=== PATIENT | male | born 1950 | race Caucasian/White ===

== ENCOUNTER 2024-03-06 15:46 | Emergency (ER) | payer MEDICARE ==
[2024-03-06 16:09] VITALS: TEMP 97.4; O2SAT 100
[2024-03-06] MEDS ORDERED: solu-MEDROL ONE (16:10)
[2024-03-06] MEDS ORDERED: Sterile H2O 10 ml IJ ONE (16:10)
[2024-03-06] MEDS: solu-MEDROL 125 MG, Sterile H2O 10 ml 2 ML IV ONE (16:11)
[2024-03-06] MEDS ORDERED: DUONEB 0.5-3 MG/3 ml Neb IH ONE (16:11)
[2024-03-06] MEDS: DUONEB 0.5-3 MG/3 ml Neb IH ONE (16:12)
[2024-03-06 16:14] LABS: Absolute Neutrophil Ct (ANC) 5.39 x10^3/uL (1.78-5.38); BASOPHIL % 0.8 % (0.2-1.2); Basophil (Absolute #) 0.06 x10^3/uL (0.01-0.08); Eosinophil % 3.5 % (0.8-7.0); Eosinophil (Absolute #) 0.27 x10^3/uL (0.04-0.54); Hematocrit 41.3 % (40.1-51.0); Hemoglobin 13.5 g/dL (13.7-17.5); IMMATURE GRAN # 0.02 x10^3u/L (0.001-0.031); IMMATURE GRAN % 0.3 % (0.001-0.429); Lymphocyte (Absolute #) 1.37 x10^3/uL (1.32-3.57); Lymphocytes % 17.7 % (21.8-53.1); Mean Cell Volume 91.2 fL (79.0-92.2); Mean Corpuscular Hemoglobin 29.8 pg (25.7-32.2); Mean Corpuscular Hgb Concent. 32.7 g/dL (32.3-36.5); Mean Platelet Volume 9.8 fL (9.4-12.4); Monocyte (Absolute #) 0.65 x10^3/uL (0.30-0.82); Monocytes % 8.4 % (5.3-12.2); Neutrophil % 69.3 % (34.0-67.9); Platelet Count 240 x10^3/uL (163-337); Red Blood Count 4.53 x10^6/uL (4.63-6.08); Red Cell Distribution Width 13.4 % (11.6-14.4); White Blood Count 7.8 x10^3/uL (4.23-9.07)
[2024-03-06 16:29] LABS: ALBUMIN 4.5 g/dL (3.5-5.0); ANION GAP 11.7 MEQ/L (5-15); BILIRUBIN,TOTAL 0.8 mg/dL (0.2-1.3); Calcium 9.4 mg/dL (8.4-10.2); Creatinine 1 0.74 mg/dL (0.66-1.25); EST GLOMERULAR FILTRATION RATE 96.3 ML/MIN; Potassium 4.5 mmol/L (3.5-5.1); Total Protein 8.1 g/dL (6.3-8.2)
--- NOTE | 2024-03-06 16:37 | ERPHSYRPT ---
- History of Present Illness Time Seen by Provider: 03/06/24 15:50 Source: patient, family Exam Limitations: no limitations Patient Subjective Stated Complaint: pt states SOB for the past week Triage Nursing Assessment: pt came into the er via wheelchair; pt is axo x3; c/o SOB; pt states 10/10 pain to left ribs; moist hacking cough; diminished lungs sounds throughout; labored breathing; skin PDW; hypertensive Physician History: 73 years old male with history of chronic respiratory failure secondary to COPD on 2.5 L oxygen, tobacco abuse, hypertension, hyperlipidemia, coronary artery disease with stenting presented in the ER with 2 week history of worsening cough productive of clear to yellow sputum with increasing shortness of breath. Patient reports normally he does not use oxygen all the time but lately he is getting short of breath with activities and has been using it more frequently. He has been using inhaler/nebulizer with no significant relief. Denies any fever or chills but reports bilateral lower chest wall/rib pain more on the left side than the right. Has been seen by chiropractor and thinks it is [place] which hurts to take a deep breath and movements and possible fractured rib. Denies any known sick contact. Allergies/Adverse Reactions: No Known Drug Allergies Allergy (Unverified 03/06/24 15:48) Home Medications: Aspirin EC 81 mg [Ecotrin 81 mg] 81 mg PO DAILY 03/06/24 [History] Atorvastatin Calcium 80 mg PO HS 03/06/24 [History] Carvedilol 3.125 mg [Coreg 3.125 MG] 3.125 mg PO BID 03/06/24 [History] Clopidogrel Bisulfate [Clopidogrel] 75 mg PO DAILY 03/06/24 [History] Losartan Potassium [Cozaar] 12.5 mg PO DAILY 03/06/24 [History] Nitroglycerin 0.4 mg Tablet [Nitrostat 0.4 MG Tablet] 0.4 mg SL Q5MIN PRN MR X 3 PRN 03/06/24 [History] Hx Tetanus, Diphtheria Vaccination/Date Given: Yes Hx Influenza Vaccination/Date Given: No Hx Pneumococcal Vaccination/Date Given: Yes Travel Risk - International Travel Have you traveled outside of the country in past 3 weeks: No - Emerging Infectious Disease Are you exhibiting symptoms associated with any current EIDs: Yes Symptoms: Cough: New Onset, Shortness of Breath - Review of Systems Constitutional: Fatigue Eyes: No Symptoms Ears, Nose, & Throat: No Symptoms Respiratory: Cough, Dyspnea, Dyspnea on Exertion (BELL), Wheezing Cardiac: Chest Pain Abdominal/Gastrointestinal: No Symptoms Genitourinary Symptoms: No Symptoms Musculoskeletal: Arthralgias Skin: No Symptoms Neurological: No Symptoms Endocrine: No Symptoms Hematologic/Lymphatic: No Symptoms Immunological/Allergic: No Symptoms - Past Medical History Pertinent Past Medical History: Yes Neurological History: No Pertinent History ENT History: No Pertinent History Cardiac History: High Cholesterol, Hypertension Respiratory History: COPD Endocrine Medical History: No Pertinent History Musculoskeletal History: No Pertinent History GI Medical History: No Pertinent History History: No Pertinent History Psycho-Social History: Anxiety, Depression Male Reproductive Disorders: No Pertinent History - Past Surgical History Past Surgical History: Yes Neuro Surgical History: No Pertinent History Cardiac: Cardiac Catheterization, Cardiac Stent Respiratory: No Pertinent History Gastrointestinal: Hernia Repair Genitourinary: No Pertinent History Musculoskeletal: No Pertinent History Male Surgical History: No Pertinent History - Social History Smoking Status: Former smoker Exposure to second hand smoke: Yes Drug Use: none - Social Determinants of Health Will the patient participate in the screening: Yes Do you worry about a steady place to live?: No Do you have any problems with any of the following?: No known problems In the past 12 months,have you had to go without utilities?: No Transportation Issues: No Has anyone in your support network made you feel unsafe?: No Have you or anyone in your house had to go without enough: No - Nursing Vital Signs Nursing Vital Signs: Initial Vital Signs Temperature 97.4 F 03/06/24 15:54 Pulse Rate 79 03/06/24 15:54 Respiratory Rate 30 H 03/06/24 15:54 Blood Pressure 217/104 03/06/24 15:54 O2 Sat by Pulse Oximetry 100 03/06/24 15:54 Pain Scale Pain Intensity 0 - Physical Exam General Appearance: no apparent distress, alert Eye Exam: PERRL/EOMI Ears, Nose, Throat Exam: hearing grossly normal, normal ENT inspection, normal pharynx Neck Exam: normal inspection, full range of motion Respiratory Exam: chest tenderness (Left lower anterolateral chest wall. No crepitus.), diminished breath sounds, accessory muscle use, rhonchi, wheezing Cardiovascular/Chest Exam: normal heart sounds, regular rate/rhythm Abdominal/Gastrointestinal Exam: soft, normal bowel sounds, No tenderness Extremity Exam: non-tender Neurologic Exam: alert, oriented x 3, cooperative Skin Exam: normal color SpO2 Interpretation: O2 applied SpO2: 100 O2 Delivery: Nasal Cannula - Course EKG Interpreted by Me: RATE (79), Sinus Rhythm, NORMAL AXIS, NORMAL INTERVALS, NORMAL QRS Ordered Tests: Active Orders 24 hr Category Date Time Status [place] [facility] STAT Care 03/06/24 16:07 Active EKG-ER Only STAT Care 03/06/24 16:07 Active IV Insertion STAT Care 03/06/24 16:07 Active Oxygen-ED Only Nasal Cannula 2 lpm Care 03/06/24 16:07 Active CHEST 1 VIEW (PORTABLE) Stat Exams 03/06/24 16:07 Completed CHEST WITH CONTRAST [CT] Stat Exams 03/06/24 17:59 Taken BLOOD CULTURE Stat Lab 03/06/24 16:23 Received CBC W DIFF Stat Lab 03/06/24 16:00 Completed CMP Stat Lab 03/06/24 16:00 Completed D-DIMER QUANTITATIVE Stat Lab 03/06/24 Completed Lactic Acid Stat Lab 03/06/24 16:07 Completed MAGNESIUM Stat Lab 03/06/24 16:00 Completed NT PRO BNPII Stat Lab 03/06/24 16:00 Completed TROPONIN Q4H Lab 03/06/24 16:00 Completed TROPONIN Q4H Lab 03/06/24 20:15 Ordered TROPONIN Q4H Lab 03/07/24 00:15 Ordered Respiratory Therapy Assessment DAILY RT 03/06/24 16:15 Active Medication Summary Discontinued Medications Generic Name Dose Route Start Last Admin Trade Name Danya PRN Reason Stop Dose Admin Albuterol/Ipratropium 3 ml 03/06/24 16:07 03/06/24 16:12 Ipratropium/Albuterol Sulfate 3 Ml Ampul.Neb IH 03/06/24 16:08 3 ml STAT ONE Administration Albuterol/Ipratropium Confirm 03/06/24 16:11 Ipratropium/Albuterol Sulfate 3 Ml Ampul.Neb Administered 03/06/24 16:12 Dose 3 ml IH .STK-MED ONE Methylprednisolone Sodium 0 mg 03/06/24 16:07 03/06/24 16:11 Succinate 125 mg/ Sterile IV 03/06/24 16:08 125 mg Water 2 ml STAT ONE Administration Doxycycline Hyclate 100 mg 03/06/24 20:21 03/06/24 20:26 Doxycycline Hyclate 100 Mg Tablet PO 03/06/24 20:22 100 mg STAT ONE Administration Doxycycline Hyclate Confirm 03/06/24 20:24 Doxycycline Hyclate 100 Mg Tablet Administered 03/06/24 20:25 Dose 100 mg .ROUTE .STK-MED ONE Methylprednisolone Sodium Succinate Confirm 03/06/24 16:10 Methylprednis Sod Succ 125 Mg/2 Ml Vial Administered 03/06/24 16:11 Dose 125 mg .ROUTE .STK-MED ONE Sterile Water Confirm 03/06/24 16:10 Water For Injection,Sterile 10 Ml Vial Administered 03/06/24 16:11 Dose 10 ml IJ .STK-MED ONE Lab/Rad Data: Laboratory Result Diagrams 03/06/24 16:00 03/06/24 16:00 Laboratory Results 03/06/24 03/06/24 03/06/24 Range/Units Unknown 16:20 16:07 WBC (4.23-9.07) x10^3/uL RBC (4.63-6.08) x10^6/uL Hgb (13.7-17.5) g/dL Hct (40.1-51.0) % MCV (79.0-92.2) fL MCH (25.7-32.2) pg MCHC (32.3-36.5) g/dL RDW (11.6-14.4) % Plt Count (163-337) x10^3/uL MPV (9.4-12.4) fL Gran % (34.0-67.9) % Immature Gran % (Auto) (0.001-0.429) % Nucleat RBC Rel Count (0.00-0.2) % Eos # (Auto) (0.04-0.54) x10^3/uL Immature Gran # (Auto) (0.001-0.031) x10^3u/L Absolute Lymphs (auto) (1.32-3.57) x10^3/uL Absolute Monos (auto) (0.30-0.82) x10^3/uL Absolute Nucleated RBC (0.00-0.012) x10^3u/L Lymphocytes % (21.8-53.1) % Monocytes % (5.3-12.2) % Eosinophils % (0.8-7.0) % Basophils % (0.2-1.2) % Absolute Granulocytes (1.78-5.38) x10^3/uL Basophils # (0.01-0.08) x10^3/uL D-Dimer 1.40 H* (0.0-0.50) mg/L Sodium (135-145) mmol/L Potassium (3.5-5.1) mmol/L Chloride (98-107) mmol/L Carbon Dioxide (22-30) mmol/L Anion Gap (5-15) MEQ/L BUN (9-20) mg/dL Creatinine (0.66-1.25) mg/dL Estimated GFR ML/MIN Glucose (74-106) mg/dL Lactic Acid 1.8 (0.4-2.0) Calcium (8.4-10.2) mg/dL Magnesium (1.6-2.3) mg/dL Total Bilirubin (0.2-1.3) mg/dL AST (17-59) U/L ALT (0-50) U/L Alkaline Phosphatase (38-126) U/L Troponin I (0.000-0.033) ng/mL NT-Pro-B Natriuret Pep (<300) pg/mL Serum Total Protein (6.3-8.2) g/dL Albumin (3.5-5.0) g/dL Influenza Type A Ag NEGATIVE (NEGATIVE) Influenza Type B Ag NEGATIVE (NEGATIVE) RSV (PCR) NEGATIVE (NEGATIVE) SARS-CoV-2 (PCR) NEGATIVE (NEGATIVE) 03/06/24 03/06/24 03/06/24 Range/Units 16:00 16:00 16:00 WBC 7.8 (4.23-9.07) x10^3/uL RBC 4.53 L (4.63-6.08) x10^6/uL Hgb 13.5 L (13.7-17.5) g/dL Hct 41.3 (40.1-51.0) % MCV 91.2 (79.0-92.2) fL MCH 29.8 (25.7-32.2) pg MCHC 32.7 (32.3-36.5) g/dL RDW 13.4 (11.6-14.4) % Plt Count 240 (163-337) x10^3/uL MPV 9.8 (9.4-12.4) fL Gran % 69.3 H (34.0-67.9) % Immature Gran % (Auto) 0.3 (0.001-0.429) % Nucleat RBC Rel Count 0.0 (0.00-0.2) % Eos # (Auto) 0.27 (0.04-0.54) x10^3/uL Immature Gran # (Auto) 0.02 (0.001-0.031) x10^3u/L Absolute Lymphs (auto) 1.37 (1.32-3.57) x10^3/uL Absolute Monos (auto) 0.65 (0.30-0.82) x10^3/uL Absolute Nucleated RBC 0.00 (0.00-0.012) x10^3u/L Lymphocytes % 17.7 L (21.8-53.1) % Monocytes % 8.4 (5.3-12.2) % Eosinophils % 3.5 (0.8-7.0) % Basophils % 0.8 (0.2-1.2) % Absolute Granulocytes 5.39 H (1.78-5.38) x10^3/uL Basophils # 0.06 (0.01-0.08) x10^3/uL D-Dimer (0.0-0.50) mg/L Sodium 139 (135-145) mmol/L Potassium 4.5 (3.5-5.1) mmol/L Chloride 100 (98-107) mmol/L Carbon Dioxide 31 H (22-30) mmol/L Anion Gap 11.7 (5-15) MEQ/L BUN 15 (9-20) mg/dL Creatinine 0.74 (0.66-1.25) mg/dL Estimated GFR 96.3 ML/MIN Glucose 106 (74-106) mg/dL Lactic Acid (0.4-2.0) Calcium 9.4 (8.4-10.2) mg/dL Magnesium 2.0 (1.6-2.3) mg/dL Total Bilirubin 0.80 (0.2-1.3) mg/dL AST 40 (17-59) U/L ALT 32 (0-50) U/L Alkaline Phosphatase 121 (38-126) U/L Troponin I < 0.012 (0.000-0.033) ng/mL NT-Pro-B Natriuret Pep 558 (<300) pg/mL Serum Total Protein 8.1 (6.3-8.2) g/dL Albumin 4.5 (3.5-5.0) g/dL Influenza Type A Ag (NEGATIVE) Influenza Type B Ag (NEGATIVE) RSV (PCR) (NEGATIVE) SARS-CoV-2 (PCR) (NEGATIVE) - Progress Progress: improved, re-examined Air Movement: fair, good Progress Note: 03/06/24 20:59 73 years old is evaluated in the ER for difficulty breathing and chest wall pain. Patient pain is reproducible and has 1 tender spot. EKG did not show any acute ST elevations and negative troponins x 2. Chest x-ray negative. Normal white count and fairly unremarkable chemistries. Patient has elevated D-dimer and CTA is negative for pulmonary embolism. Has no focal consolidation. Patient does have a right middle lung irregular mass concerning for further evaluation for malignancy. Patient does have history of smoking. I have given him DuoNeb and Solu-Medrol, on reevaluation is feeling much better. I have made him walk with oxygen with saturation staying around 98/99% and without oxygen the lowest 1 was in 95. Patient is not getting short of breath. I believe patient has COPD exacerbation. I discussed with patient about observation in the hospital versus going home and he does not want to stay in the hospital at all. I have given him a dose of doxycycline here and will continue to go home with Doxy and prednisone. Discussed/recommended outpatient follow-up with primary care and cardiology for further evaluation. Discussed signs symptoms of worsening needing return to ER which he seems understanding. Stable for discharge. Patient' history, workup, review of record and interpretation of workup including imaging and lab work makes it one of the higher complexity case. Blood Culture(s) Obtained: Yes Antibiotics given: Yes Counseled pt/family regarding: lab results, diagnosis, need for follow-up, rad results Medical Desision Making - Independent Historian Additional History obtained from: Child - Diagnostic Testing Diagnostic test were ordered, analyzed, and reviewed by me: Yes Radiological Interpretation: Reviewed by me, Teleradiologist Report - Risk of complications The pt has a mod risk of morbidity or mortality based on: Need for prescription drug management - Departure Departure Disposition: Home Clinical Impression: COPD exacerbation Condition: Stable Critical Care Time: No Referrals: LESTER CONTRERAS, [employer] [Primary Care Provider] - Follow up with PCP 1 day Instructions: Chronic Obstructive Pulmonary Disease, Exacerbation of COPD (DC) Additional Instructions: Continue with oxygen. Take regular breathing treatments. Follow-up with primary care and cardiology for reevaluation. Turn to ER for any worsening breathing or if having chest pain etc.. Prescriptions: Prednisone 20 mg [Deltasone 20 mg] 60 mg PO DAILY 5 Days #15 tablet Doxycycline Hyclate 100 mg [Vibramycin 100 MG] 100 mg PO BID #14 tab
[2024-03-06 17:07] LABS: INFLUENZA A NEGATIVE (NEGATIVE); INFLUENZA B NEGATIVE (NEGATIVE); RESPIRATORY SYNCTIAL VIRUS NEGATIVE (NEGATIVE); SARS-CoV-2 Xpert Express NEGATIVE (NEGATIVE)
--- NOTE | 2024-03-06 17:11 | XRAY ---
Indication: COPD. Comparison: November 15, 2022 Portable chest unchanged again demonstrating CT proven COPD and left lower lobe calcified granuloma. Heart not enlarged. Bony thorax intact again with osteopenia and degenerative changes. No new/acute findings.
[2024-03-06] MEDS ORDERED: Vibramycin 100 MG ONE (20:24)
[2024-03-06] MEDS: Vibramycin 100 MG PO ONE (20:26)
[2024-03-06 21:14] VITALS: BP 161/84; PULSE 73; RESP 21
--- NOTE | 2024-03-07 08:41 | XRAY ---
Indication: Short of breath. Pulmonary embolus. Multiple contiguous axial images obtained through the chest using 80 cc Isovue 370 contrast and PE protocol. Comparison: CT low-dose lung screening exam December 13, 2022. Good opacification of the pulmonary arteries to include the lobar and segmental branches. No pulmonary embolus. Heart not enlarged with scattered coronary calcifications. Aorta is mildly arteriosclerotic without aneurysm/dissection. Tiny left hilar calcified node. No pathologic mediastinal/hilar lymphadenopathy. Lungs again demonstrates extensive pulmonary emphysema, posterior bilateral upper lobe subsegmental atelectasis/scarring, and left lower lobe calcified granuloma. Right middle lobe demonstrates new irregular shaped masslike opacity measuring at least 2.7 x 2.7 x 2.5 cm either subsegmental atelectasis/scarring versus lung mass. No infiltrate or effusion. Bony thorax again demonstrates osteopenia. New remote-appearing superior endplate fracture T7 with approximately 25% height loss. Limited upper abdomen again demonstrates 3.8 cm left renal cyst. Impression: 1. Negative pulmonary embolus. 2. New right middle lobe irregular masslike opacity either atelectasis/scarring versus lung mass. PET/CT may yield further information. 2. Chronic findings including extensive pulmonary emphysema, atelectasis/scarring, arteriosclerotic disease, left renal cyst, and chronic bony findings.
== END 2024-03-06 21:20 | disposition home or self-care (01) ==
LOC: ED 15:46
DX: J44.1 Chronic obstructive pulmonary disease with (acute) exacerbation (principal); R05.1 Acute cough; R06.02 Shortness of breath; I10 Essential (primary) hypertension; E78.5 Hyperlipidemia, unspecified; Z79.52 Long term (current) use of systemic steroids; Z79.02 Long term (current) use of antithrombotics/antiplatelets; Z79.899 Other long term (current) drug therapy; Z99.81 Dependence on supplemental oxygen
CPT/HCPCS: 0241U; 36000; 36415; 71045; 71260; 80053; 83605; 83735; 83880; 84484; 85025; 85379; 87040; 93005; 93041; 94640; 96374; 99284; J2919; A9270-GY

== ENCOUNTER 2024-05-21 11:25 | Observation (INO) | payer MEDICARE ==
--- NOTE | 2024-05-21 11:28 | ERPHSYRPT ---
- History of Present Illness Time Seen by Provider: 05/21/24 11:28 Source: patient Exam Limitations: no limitations Physician History: This is a thin, 73-year-old white male patient of Dr. Mendez who sent the patient over to have us evaluate him. He was seen at the office and complaining of mild cough and shortness of breath. Patient is on 2.5 L of oxygen via nasal cannula. He presented to their office with complaint of a mild cough and shortness of breath. He does not have chest pain. Patient has a history of hypertension, hyperlipidemia and is on Plavix. I spoke to the nurse practitioner at the [facility] set [facility] worker office who told me that this patient has a hist ory of coronary artery disease with cardiac stent in place and mild aortic stenosis. She also reported to me that the patient had a CT scan of the chest on 04/22/2024 at [facility] which showed pulmonary edema. Patient's oxygen saturation level on 3 L of oxygen and here in the emergency department is 99 to 100%. Again, he has no chest pain. Timing/Duration: today, worse Activities at Onset: activity Severity of Dyspnea-Max: moderate Severity of Dyspnea-Current: moderate Possible Cause: frequent episodes Modifying Factors: Improves With: activity, coughing Associated Symptoms: cough, wheezing, No chest pain/discomfort, No ankle swelling, No leg swelling Allergies/Adverse Reactions: No Known Drug Allergies Allergy (Unverified 03/06/24 15:48) Home Medications: Aspirin EC 81 mg [Ecotrin 81 mg] 81 mg PO DAILY 03/06/24 [History] Atorvastatin Calcium 80 mg PO HS 03/06/24 [History] Carvedilol 3.125 mg [Coreg 3.125 MG] 3.125 mg PO BID 03/06/24 [History] Clopidogrel Bisulfate [Clopidogrel] 75 mg PO DAILY 03/06/24 [History] Losartan Potassium [Cozaar] 12.5 mg PO DAILY 03/06/24 [History] Nitroglycerin 0.4 mg Tablet [Nitrostat 0.4 MG Tablet] 0.4 mg SL Q5MIN PRN MR X 3 PRN 03/06/24 [History] Hx Tetanus, Diphtheria Vaccination/Date Given: Yes Hx Influenza Vaccination/Date Given: No Hx Pneumococcal Vaccination/Date Given: Yes Travel Risk - International Travel Have you traveled outside of the country in past 3 weeks: No - Emerging Infectious Disease Are you exhibiting symptoms associated with any current EIDs: Yes Symptoms: Cough: New Onset, Shortness of Breath - Review of Systems Constitutional: No Symptoms Eyes: No Symptoms Ears, Nose, & Throat: No Symptoms Respiratory: Cough, Dyspnea, Wheezing Cardiac: No Symptoms Abdominal/Gastrointestinal: No Symptoms Genitourinary Symptoms: No Symptoms Musculoskeletal: No Symptoms Skin: No Symptoms Neurological: No Symptoms Psychological: No Symptoms Endocrine: No Symptoms Hematologic/Lymphatic: No Symptoms Immunological/Allergic: No Symptoms All Other Systems: Reviewed and Negative - Past Medical History Pertinent Past Medical History: Yes Neurological History: No Pertinent History ENT History: No Pertinent History Cardiac History: High Cholesterol, Hypertension Respiratory History: COPD Endocrine Medical History: No Pertinent History Musculoskeletal History: No Pertinent History GI Medical History: No Pertinent History History: No Pertinent History Psycho-Social History: Anxiety, Depression Male Reproductive Disorders: No Pertinent History - Past Surgical History Past Surgical History: Yes Neuro Surgical History: No Pertinent History Cardiac: Cardiac Catheterization, Cardiac Stent Respiratory: No Pertinent History Gastrointestinal: Hernia Repair Genitourinary: No Pertinent History Musculoskeletal: No Pertinent History Male Surgical History: No Pertinent History - Social History Smoking Status: Former smoker Exposure to second hand smoke: Yes Drug Use: none - Social Determinants of Health Will the patient participate in the screening: Yes Do you worry about a steady place to live?: No In the past 12 months,have you had to go without utilities?: No Transportation Issues: No Has anyone in your support network made you feel unsafe?: No Have you or anyone in your house had to go without enough: No - Nursing Vital Signs Nursing Vital Signs: Initial Vital Signs Temperature 98.8 F 05/21/24 11:39 Pulse Rate 78 05/21/24 11:39 Respiratory Rate 20 05/21/24 11:39 Blood Pressure 163/92 05/21/24 11:39 O2 Sat by Pulse Oximetry 100 05/21/24 11:39 Pain Scale Pain Intensity 0 - Physical Exam General Appearance: mild distress, alert, anxiety, thin Eye Exam: PERRL/EOMI, eyes nml inspection Ears, Nose, Throat Exam: hearing grossly normal, normal ENT inspection, normal pharynx Neck Exam: normal inspection, non-tender, supple, full range of motion Respiratory Exam: airway intact, wheezing (Mild expiratory wheeze at bases), No chest tenderness, No respiratory distress, No accessory muscle use, No stridor Cardiovascular/Chest Exam: normal heart sounds, regular rate/rhythm, normal peripheral pulses Abdominal/Gastrointestinal Exam: soft, normal bowel sounds, No tenderness Rectal Exam: not done Extremity Exam: non-tender, normal range of motion, normal inspection, no pedal edema, pelvis stable Neurologic Exam: alert, oriented x 3, cooperative, clinical pharmacologist II-XII nml as tested, normal mood/affect, nml cerebellar function, nml station & gait, sensation nml Skin Exam: normal color, warm, dry Lymphatic Exam: No adenopathy SpO2 Interpretation: normal O2 Delivery: Nasal Cannula (3 L of oxygen) - Course Nursing assessment & vital signs reviewed: Yes EKG Interpreted by Me: RATE (74), NORMAL AXIS, NORMAL INTERVALS, NORMAL QRS, Other (QTc is 443. I do not see an acute ischemia. I compared today's twelve- lead EKG to the EKG dated 03/06/2024. There are no significant changes) Ordered Tests: Active Orders 24 hr Category Date Time Status EKG-ER Only STAT Care 05/21/24 11:59 Active IV Insertion STAT Care 05/21/24 11:59 Active Oxygen-ED Only Nasal Cannula 3 lpm Care 05/21/24 11:59 Active Pulse Oximetry (ED) STAT Care 05/21/24 11:59 Active CHEST WITHOUT CONTRAST [CT] Stat Exams 05/21/24 11:59 Completed BLOOD CULTURE Stat Lab 05/21/24 12:28 Received CBC W DIFF Stat Lab 05/21/24 12:00 Completed CMP Stat Lab 05/21/24 12:00 Completed Lactic Acid Stat Lab 05/21/24 12:07 Completed MAGNESIUM Stat Lab 05/21/24 12:00 Completed NT PRO BNPII Stat Lab 05/21/24 12:00 Completed PROTIME WITH INR Stat Lab 05/21/24 12:00 Completed TROPONIN Q4H Lab 05/21/24 12:00 Completed TROPONIN Q4H Lab 05/21/24 16:00 Ordered TROPONIN Q4H Lab 05/21/24 20:00 Ordered Respiratory Therapy Assessment DAILY RT 05/21/24 12:14 Active Medication Summary Generic Name Dose Route Start Last Admin Trade Name Freq PRN Reason Stop Dose Admin Ceftriaxone Sodium 1 gm in 100 mls @ 200 mls/hr 05/21/24 13:29 05/21/24 13:36 Rocephin 1 Gm / 100 Ml Nacl IV 05/21/24 13:58 200 mls/hr STAT ONE 200 mls/hr Administration Discontinued Medications Generic Name Dose Route Start Last Admin Trade Name Freq PRN Reason Stop Dose Admin Albuterol/Ipratropium 3 ml 05/21/24 12:13 05/21/24 12:28 Ipratropium/Albuterol Sulfate 3 Ml Ampul.Neb IH 05/21/24 12:14 3 ml STAT ONE Administration Albuterol/Ipratropium Confirm 05/21/24 12:11 Ipratropium/Albuterol Sulfate 3 Ml Ampul.Neb Administered 05/21/24 12:12 Dose 3 ml IH .STK-MED ONE Ceftriaxone Sodium Confirm 05/21/24 13:35 Rocephin 1 Gm / 100 Ml Nacl Administered 05/21/24 13:36 Dose 1 gm in 100 mls @ ud IV .STK-MED ONE Lab/Rad Data: Laboratory Result Diagrams 05/21/24 12:00 05/21/24 12:00 Laboratory Results 05/21/24 05/21/24 05/21/24 Range/Units 12:30 12:07 12:00 WBC (4.23-9.07) x10^3/uL RBC (4.63-6.08) x10^6/uL Hgb (13.7-17.5) g/dL Hct (40.1-51.0) % MCV (79.0-92.2) fL MCH (25.7-32.2) pg MCHC (32.3-36.5) g/dL RDW (11.6-14.4) % Plt Count (163-337) x10^3/uL MPV (9.4-12.4) fL Gran % (34.0-67.9) % Immature Gran % (Auto) (0.001-0.429) % Nucleat RBC Rel Count (0.00-0.2) % Eos # (Auto) (0.04-0.54) x10^3/uL Immature Gran # (Auto) (0.001-0.031) x10^3u/L Absolute Lymphs (auto) (1.32-3.57) x10^3/uL Absolute Monos (auto) (0.30-0.82) x10^3/uL Absolute Nucleated RBC (0.00-0.012) x10^3u/L Lymphocytes % (21.8-53.1) % Monocytes % (5.3-12.2) % Eosinophils % (0.8-7.0) % Basophils % (0.2-1.2) % Absolute Granulocytes (1.78-5.38) x10^3/uL Basophils # (0.01-0.08) x10^3/uL PT (9.4-12.5) SECONDS INR (0.8-3.0) Sodium (135-145) mmol/L Potassium (3.5-5.1) mmol/L Chloride (98-107) mmol/L Carbon Dioxide (22-30) mmol/L Anion Gap (5-15) MEQ/L BUN (9-20) mg/dL Creatinine (0.66-1.25) mg/dL Estimated GFR ML/MIN Glucose (74-106) mg/dL Lactic Acid 1.4 (0.4-2.0) Calcium (8.4-10.2) mg/dL Magnesium (1.6-2.3) mg/dL Total Bilirubin (0.2-1.3) mg/dL AST (17-59) U/L ALT (0-50) U/L Alkaline Phosphatase (38-126) U/L Troponin I < 0.012 (0.000-0.033) ng/mL NT-Pro-B Natriuret Pep 692 (<300) pg/mL Serum Total Protein (6.3-8.2) g/dL Albumin (3.5-5.0) g/dL Influenza Type A Ag NEGATIVE (NEGATIVE) Influenza Type B Ag NEGATIVE (NEGATIVE) RSV (PCR) NEGATIVE (NEGATIVE) SARS-CoV-2 (PCR) NEGATIVE (NEGATIVE) 05/21/24 05/21/24 05/21/24 Range/Units 12:00 12:00 12:00 WBC 8.6 (4.23-9.07) x10^3/uL RBC 4.04 L (4.63-6.08) x10^6/uL Hgb 12.0 L (13.7-17.5) g/dL Hct 37.1 L (40.1-51.0) % MCV 91.8 (79.0-92.2) fL MCH 29.7 (25.7-32.2) pg MCHC 32.3 (32.3-36.5) g/dL RDW 13.0 (11.6-14.4) % Plt Count 177 (163-337) x10^3/uL MPV 10.7 (9.4-12.4) fL Gran % 75.9 H (34.0-67.9) % Immature Gran % (Auto) 0.2 (0.001-0.429) % Nucleat RBC Rel Count 0.0 (0.00-0.2) % Eos # (Auto) 0.22 (0.04-0.54) x10^3/uL Immature Gran # (Auto) 0.02 (0.001-0.031) x10^3u/L Absolute Lymphs (auto) 1.08 L (1.32-3.57) x10^3/uL Absolute Monos (auto) 0.71 (0.30-0.82) x10^3/uL Absolute Nucleated RBC 0.00 (0.00-0.012) x10^3u/L Lymphocytes % 12.5 L (21.8-53.1) % Monocytes % 8.2 (5.3-12.2) % Eosinophils % 2.6 (0.8-7.0) % Basophils % 0.6 (0.2-1.2) % Absolute Granulocytes 6.54 H (1.78-5.38) x10^3/uL Basophils # 0.05 (0.01-0.08) x10^3/uL PT 10.9 (9.4-12.5) SECONDS INR 1.00 (0.8-3.0) Sodium 138 (135-145) mmol/L Potassium 4.1 (3.5-5.1) mmol/L Chloride 99 (98-107) mmol/L Carbon Dioxide 32 H (22-30) mmol/L Anion Gap 11.1 (5-15) MEQ/L BUN 17 (9-20) mg/dL Creatinine 0.78 (0.66-1.25) mg/dL Estimated GFR 94.8 ML/MIN Glucose 99 (74-106) mg/dL Lactic Acid (0.4-2.0) Calcium 9.2 (8.4-10.2) mg/dL Magnesium 1.9 (1.6-2.3) mg/dL Total Bilirubin 1.10 (0.2-1.3) mg/dL AST 38 (17-59) U/L ALT 27 (0-50) U/L Alkaline Phosphatase 101 (38-126) U/L Troponin I (0.000-0.033) ng/mL NT-Pro-B Natriuret Pep (<300) pg/mL Serum Total Protein 7.3 (6.3-8.2) g/dL Albumin 4.1 (3.5-5.0) g/dL Influenza Type A Ag (NEGATIVE) Influenza Type B Ag (NEGATIVE) RSV (PCR) (NEGATIVE) SARS-CoV-2 (PCR) (NEGATIVE) - Progress Progress: improved Air Movement: good Progress Note: 05/21/24 12:31 My medical decision making and the assignment of moderate complexity to this patient's medical issue today is based on review of the patient's past medical history, review of the patient's medication list, reviewed patient drug allergy list, history present illness and physical findings on examination. The workup in this patient includes placement of a intravenous line, CBC, CMP, BNP, troponin level, twelve-lead EKG, CT scan of the chest without contrast, viral studies, monotest. Differential diagnosis includes but is not limited to pulmonary edema, congestive heart failure exacerbation, COPD exacerbation, myocardial infarction, electrolyte abnormalities, anemia, arrhythmias, pneumonia 05/21/24 13:31 I interpreted the patient's laboratory data results. Based on the laboratory data results, there are no acute, emergent medical issues. CT scan of the chest without contrast was interpreted by the radiologist and I reviewed the impression. The impression states new, minimal right middle lobe interstitial alveolar opacity ? Pneumonia/pneumonitis 05/21/24 13:57 I spoke with telehospitalist Dr. Hernandes. I reviewed the patient history, presenting complaint, workup results and response to our treatment. Patient has a right middle lobe pneumonia. We will place him in observation. Blood Culture(s) Obtained: Yes Antibiotics given: Yes Counseled pt/family regarding: lab results, diagnosis, rad results Medical Desision Making - Discussion of managment Care discussed with:: hospitalist Reviewed:: Test results, Need for additional workup Agreed on:: place in obs - Diagnostic Testing Diagnostic test were ordered, analyzed, and reviewed by me: Yes Radiological Interpretation: Reviewed by me, Teleradiologist Report - Risk of complications The pt has a high risk of morbidity or mortality based on: Decision regarding hospitilization or escalation of hosp level of care - Departure Departure Disposition: Observation Clinical Impression: Right middle lobe pneumonia Condition: Stable Critical Care Time: No Referrals: [employer] [Primary Care Provider] - Follow up/PCP as directed
[2024-05-21] MEDS ORDERED: DUONEB 0.5-3 MG/3 ml Neb IH ONE (12:11)
[2024-05-21 12:12] LABS: Absolute Neutrophil Ct (ANC) 6.54 x10^3/uL (1.78-5.38); BASOPHIL % 0.6 % (0.2-1.2); Basophil (Absolute #) 0.05 x10^3/uL (0.01-0.08); Eosinophil % 2.6 % (0.8-7.0); Eosinophil (Absolute #) 0.22 x10^3/uL (0.04-0.54); Hematocrit 37.1 % (40.1-51.0); IMMATURE GRAN # 0.02 x10^3u/L (0.001-0.031); IMMATURE GRAN % 0.2 % (0.001-0.429); Lymphocyte (Absolute #) 1.08 x10^3/uL (1.32-3.57); Lymphocytes % 12.5 % (21.8-53.1); Mean Cell Volume 91.8 fL (79.0-92.2); Mean Corpuscular Hemoglobin 29.7 pg (25.7-32.2); Mean Corpuscular Hgb Concent. 32.3 g/dL (32.3-36.5); Mean Platelet Volume 10.7 fL (9.4-12.4); Monocyte (Absolute #) 0.71 x10^3/uL (0.30-0.82); Monocytes % 8.2 % (5.3-12.2); Neutrophil % 75.9 % (34.0-67.9); Platelet Count 177 x10^3/uL (163-337); Red Blood Count 4.04 x10^6/uL (4.63-6.08); White Blood Count 8.6 x10^3/uL (4.23-9.07)
[2024-05-21 12:20] LABS: ALBUMIN 4.1 g/dL (3.5-5.0); ANION GAP 11.1 MEQ/L (5-15); BILIRUBIN,TOTAL 1.1 mg/dL (0.2-1.3); Calcium 9.2 mg/dL (8.4-10.2); Creatinine 1 0.78 mg/dL (0.66-1.25); EST GLOMERULAR FILTRATION RATE 94.8 ML/MIN; MAGNESIUM 1.9 mg/dL (1.6-2.3); Potassium 4.1 mmol/L (3.5-5.1); Total Protein 7.3 g/dL (6.3-8.2)
[2024-05-21 12:21] LABS: PROTIME 10.9 SECONDS (9.4-12.5)
[2024-05-21] MEDS: DUONEB 0.5-3 MG/3 ml Neb IH ONE (12:28)
[2024-05-21 12:32] LABS: NT PRO BNPII 692 pg/mL (<300); TROPONIN < 0.012 ng/mL (0.000-0.033)
[2024-05-21 13:15] LABS: INFLUENZA A NEGATIVE (NEGATIVE); INFLUENZA B NEGATIVE (NEGATIVE); RESPIRATORY SYNCTIAL VIRUS NEGATIVE (NEGATIVE); SARS-CoV-2 Xpert Express NEGATIVE (NEGATIVE)
--- NOTE | 2024-05-21 13:18 | XRAY ---
Indication: Short of breath. Cough. COPD. Multiple contiguous axial images obtained through the chest without contrast. Comparison: March 06, 2024 Lungs again demonstrates extensive pulmonary emphysema and small left lower lobe calcified granuloma. Right middle lobe masslike opacity has cleared with now minimal interstitial alveolar opacities. No consolidation or effusion. Heart not enlarged again with scattered coronary calcifications. Aorta remains mildly arteriosclerotic without aneurysm. Stable tiny left hilar calcified node. No pathologic mediastinal lymphadenopathy. Bony thorax intact again with osteopenia and remote superior endplate fracture T7. New nondisplaced healing lateral left 8/9 rib fractures. Limited upper abdomen again demonstrates 3.8 cm left renal cyst. Impression: 1. New minimal right middle lobe interstitial alveolar opacities. Rule out pneumonia/pneumonitis. 2. Chronic findings including extensive pulmonary edema, arteriosclerotic disease, left renal cyst, chronic bony findings, and old granulomatous disease.
[2024-05-21] MEDS ORDERED: ROCEPHIN 1 GM / 100 ML NaCl 1 GM/100 ML IVPB IV ONE (13:35)
[2024-05-21] MEDS: ROCEPHIN 1 GM / 100 ML NaCl 1 GM/100 ML IVPB IV ONE (13:36)
[2024-05-21] MEDS ORDERED: Zofran 4 MG/2 ML VIAL IV PRN (14:34)
[2024-05-21] MEDS ORDERED: TYLENOL 325 MG PO PRN (14:34)
[2024-05-21] MEDS: Zithromax 500 MG/ 250 ML NaCl Premix 500 MG/250 ML IVPB IV SCH (15:14)
[2024-05-21] MEDS ORDERED: Nitrostat 0.4 MG Tablet SL PRN (15:48)
--- NOTE | 2024-05-21 15:49 | PCM.HP ---
History of Present Illness - Chief Complaint Chief Complaint: RIGTH MIDDLE LOBE PNEUMONIA Date: 05/21/24 History of Present Illness: is a 73 [address] of Dr[address] Mendez who sent the patient over to have us evaluate him. He was seen at the office and complaining of mild cough and shortness of breath. Patient is on 2.5 L of oxygen via nasal cannula which is his baseline. He presented to their office with complaint of a mild cough and shortness of breath. He does not have chest pain. Patient has a history of hypertension, hyperlipidemia and is on Plavix. Per cardiology patient has a history of coronary artery disease with cardiac stent in place and mild aortic stenosis. Patient had a CT scan of the chest on 04/22/2024 at [facility] which showed pulmonary edema. Patient's oxygen saturation level on 3 L of oxygen in the emergency department iwas 99 to 100%. He reports being sick for about 2 weeks and progressively getting worse. Since a breathing treatment in the ER he is feeling much better. He does continue to have SOB and weakness. Will continue IV antibiotics and duonebs. BC x2 and sputum culture pending. Will have pt work with PT for weakness. He denies CP, Abd pain, N/V/D. - Review of Systems Constitutional: Fever, Weakness, No Chills Eyes: No Symptoms Ears, Nose, & Throat: No Symptoms Respiratory: Cough, Short Of Breath, Wheezing Cardiac: No Chest Pain, No Edema, No Syncope Abdominal/Gastrointestinal: No Abdominal Pain, No Nausea, No Vomiting, No Diarr hea Genitourinary Symptoms: No Dysuria Musculoskeletal: No Back Pain, No Neck Pain Skin: No Rash Neurological: No Dizziness, No Focal Weakness, No Sensory Changes Psychological: No Symptoms Endocrine: No Symptoms Hematologic/Lymphatic: No Symptoms Immunological/Allergic: No Symptoms Medications & Allergies Home Medications: Home Medication List Aspirin EC 81 mg [Ecotrin 81 mg] 81 mg PO HS 03/06/24 [History Confirmed 05/21/24] Atorvastatin Calcium 80 mg PO HS 03/06/24 [History Confirmed 05/21/24] Clopidogrel Bisulfate [Clopidogrel] 75 mg PO HS 03/06/24 [History Confirmed 05/21/24] Losartan Potassium [Cozaar] 12.5 mg PO HS 03/06/24 [History Confirmed 05/21/24] Nitroglycerin 0.4 mg Tablet [Nitrostat 0.4 MG Tablet] 0.4 mg SL Q5MIN PRN MR X 3 PRN 03/06/24 [History Confirmed 05/21/24] Albuterol 2.5 mg/3 ml Neb [Proventil 2.5 mg/3 ml Neb] 1 neb IH Q4HPRN PRN 05/21/24 [History Confirmed 05/21/24] Albuterol Common Canister [Ventolin Common Canister] 1 puff IH Q4HPRN PRN 05/21/24 [History Confirmed 05/21/24] Budesonide/Glycopyr/Formoterol [Breztri Aerosphere Inhaler] 2 puff IH BID 05/21/24 [History Confirmed 05/21/24] Potassium Chloride 10 meq PO HS 05/21/24 [History Confirmed 05/21/24] Allergies/Adverse Reactions: Allergies Allergy/AdvReac Type Severity Reaction Status Date / Time No Known Drug Allergies Allergy Verified 05/21/24 14:36 - Past Medical History Past Medical History: Yes Neurological History: No Pertinent History ENT History: No Pertinent History Cardiac History: High Cholesterol, Hypertension Respiratory History: COPD Endocrine Medical History: No Pertinent History Musculoskelatal History: No Pertinent History GI Medical History: No Pertinent History History: No Pertinent History Pyscho-Social History: Anxiety, Depression Male Reproductive Disorders: No Pertinent History - Past Surgical History Past Surgical History: Yes Neuro Surgical History: No Pertinent History Cardiac History: Cardiac Catheterization, Cardiac Stent Respiratory Surgery: No Pertinent History GI Surgical History: Hernia Repair Genitourinary Surgical Hx: No Pertinent History Musculskeletal Surgical Hx: No Pertinent History Male Surgical History: No Pertinent History Significant Family History: no pertinent family hx - Social History Smoking Status: Former smoker Exposure to second hand smoke: Yes Alcohol: Rarely Drug Use: none - Social Determinants of Health Will the patient participate in the screening: Yes Do you worry about a steady place to live?: No Do you have any problems with any of the following?: No known problems In the past 12 months,have you had to go without utilities?: No Have you or anyone in your house had to go without enough: No Transportation Issues: No Has anyone in your support network made you feel unsafe?: No Does the patient want assistance with any of the above?: No - Physical Exam Vital Signs: Vital Signs - 24 hr Temp Pulse Resp BP BP Pulse Ox 05/21/24 15:15 78 18 98 05/21/24 15:07 100 05/21/24 14:39 97.6 F 74 16 188/79 100 05/21/24 14:00 74 16 169/88 100 05/21/24 13:45 87 12 167/88 100 05/21/24 13:30 73 22 151/84 100 05/21/24 13:15 68 19 157/83 100 05/21/24 13:00 73 20 170/92 100 05/21/24 12:46 75 18 157/98 100 05/21/24 12:32 76 20 98 05/21/24 12:30 69 19 120/84 82 L 05/21/24 12:29 75 18 88 L 05/21/24 12:26 77 19 05/21/24 12:08 98 05/21/24 12:00 76 25 H 130/94 100 05/21/24 11:45 73 22 158/89 100 05/21/24 11:39 98.8 F 78 20 163/92 99 General Appearance: no apparent distress, alert, thin Neurologic Exam: alert, oriented x 3, cooperative, normal mood/affect, nml cerebellar function, nml station & gait, sensation nml, motor weakness, No motor deficits Eye Exam: PERRL/EOMI, eyes nml inspection Ears, Nose, Throat Exam: normal ENT inspection, TMs normal, pharynx normal, m oist mucous membranes Neck Exam: normal inspection, non-tender, supple, full range of motion Respiratory Exam: diminished breath sounds, wheezing, No respiratory distress Cardiovascular Exam: regular rate/rhythm, normal heart sounds, normal peripheral pulses Gastrointestinal/Abdomen Exam: soft, normal bowel sounds, No tenderness, No mass Back Exam: normal inspection, normal range of motion, No CVA tenderness, No vertebral tenderness Extremity Exam: normal inspection, normal range of motion, pelvis stable Skin Exam: normal color, warm, dry, No rash Lymphatic Exam: No adenopathy Results - Labs Lab/Micro Results: Lab Results-Last 24 Hours 05/21/24 05/21/24 05/21/24 Range/Units 12:00 12:00 12:00 WBC 8.6 (4.23-9.07) x10^3/uL RBC 4.04 L (4.63-6.08) x10^6/uL Hgb 12.0 L (13.7-17.5) g/dL Hct 37.1 L (40.1-51.0) % MCV 91.8 (79.0-92.2) fL MCH 29.7 (25.7-32.2) pg MCHC 32.3 (32.3-36.5) g/dL RDW 13.0 (11.6-14.4) % Plt Count 177 (163-337) x10^3/uL MPV 10.7 (9.4-12.4) fL Gran % 75.9 H (34.0-67.9) % Immature Gran % (Auto) 0.2 (0.001-0.429) % Nucleat RBC Rel Count 0.0 (0.00-0.2) % Eos # (Auto) 0.22 (0.04-0.54) x10^3/uL Immature Gran # (Auto) 0.02 (0.001-0.031) x10^3u/L Absolute Lymphs (auto) 1.08 L (1.32-3.57) x10^3/uL Absolute Monos (auto) 0.71 (0.30-0.82) x10^3/uL Absolute Nucleated RBC 0.00 (0.00-0.012) x10^3u/L Lymphocytes % 12.5 L (21.8-53.1) % Monocytes % 8.2 (5.3-12.2) % Eosinophils % 2.6 (0.8-7.0) % Basophils % 0.6 (0.2-1.2) % Absolute Granulocytes 6.54 H (1.78-5.38) x10^3/uL Basophils # 0.05 (0.01-0.08) x10^3/uL PT 10.9 (9.4-12.5) SECONDS INR 1.00 (0.8-3.0) Sodium 138 (135-145) mmol/L Potassium 4.1 (3.5-5.1) mmol/L Chloride 99 (98-107) mmol/L Carbon Dioxide 32 H (22-30) mmol/L Anion Gap 11.1 (5-15) MEQ/L BUN 17 (9-20) mg/dL Creatinine 0.78 (0.66-1.25) mg/dL Estimated GFR 94.8 ML/MIN Glucose 99 (74-106) mg/dL Lactic Acid (0.4-2.0) Calcium 9.2 (8.4-10.2) mg/dL Magnesium 1.9 (1.6-2.3) mg/dL Total Bilirubin 1.10 (0.2-1.3) mg/dL AST 38 (17-59) U/L ALT 27 (0-50) U/L Alkaline Phosphatase 101 (38-126) U/L Troponin I (0.000-0.033) ng/mL NT-Pro-B Natriuret Pep (<300) pg/mL Serum Total Protein 7.3 (6.3-8.2) g/dL Albumin 4.1 (3.5-5.0) g/dL Influenza Type A Ag (NEGATIVE) Influenza Type B Ag (NEGATIVE) RSV (PCR) (NEGATIVE) SARS-CoV-2 (PCR) (NEGATIVE) 05/21/24 05/21/24 05/21/24 Range/Units 12:00 12:07 12:30 WBC (4.23-9.07) x10^3/uL RBC (4.63-6.08) x10^6/uL Hgb (13.7-17.5) g/dL Hct (40.1-51.0) % MCV (79.0-92.2) fL MCH (25.7-32.2) pg MCHC (32.3-36.5) g/dL RDW (11.6-14.4) % Plt Count (163-337) x10^3/uL MPV (9.4-12.4) fL Gran % (34.0-67.9) % Immature Gran % (Auto) (0.001-0.429) % Nucleat RBC Rel Count (0.00-0.2) % Eos # (Auto) (0.04-0.54) x10^3/uL Immature Gran # (Auto) (0.001-0.031) x10^3u/L Absolute Lymphs (auto) (1.32-3.57) x10^3/uL Absolute Monos (auto) (0.30-0.82) x10^3/uL Absolute Nucleated RBC (0.00-0.012) x10^3u/L Lymphocytes % (21.8-53.1) % Monocytes % (5.3-12.2) % Eosinophils % (0.8-7.0) % Basophils % (0.2-1.2) % Absolute Granulocytes (1.78-5.38) x10^3/uL Basophils # (0.01-0.08) x10^3/uL PT (9.4-12.5) SECONDS INR (0.8-3.0) Sodium (135-145) mmol/L Potassium (3.5-5.1) mmol/L Chloride (98-107) mmol/L Carbon Dioxide (22-30) mmol/L Anion Gap (5-15) MEQ/L BUN (9-20) mg/dL Creatinine (0.66-1.25) mg/dL Estimated GFR ML/MIN Glucose (74-106) mg/dL Lactic Acid 1.4 (0.4-2.0) Calcium (8.4-10.2) mg/dL Magnesium (1.6-2.3) mg/dL Total Bilirubin (0.2-1.3) mg/dL AST (17-59) U/L ALT (0-50) U/L Alkaline Phosphatase (38-126) U/L Troponin I < 0.012 (0.000-0.033) ng/mL NT-Pro-B Natriuret Pep 692 (<300) pg/mL Serum Total Protein (6.3-8.2) g/dL Albumin (3.5-5.0) g/dL Influenza Type A Ag NEGATIVE (NEGATIVE) Influenza Type B Ag NEGATIVE (NEGATIVE) RSV (PCR) NEGATIVE (NEGATIVE) SARS-CoV-2 (PCR) NEGATIVE (NEGATIVE) - Radiology Impressions Radiology Exams & Impressions: Radiology Procedures Category Date Time Status CHEST WITHOUT CONTRAST [CT] Stat Exams 05/21/24 11:59 Completed - Other Procedures and Tests Respiratory Therapy 05/21/24 12:14 Respiratory Therapy Assessment DAILY 05/21/24 14:34 EKG REPEAT IN AM 05/21/24 15:16 Oxygen Nasal Cannula 2.5 lpm Assessment/Plan (1) Right middle lobe pneumonia Current Visit: Yes Status: Acute Assessment & Plan: - BC x2 pending - IV antibiotics - CBC and CMP reviewed - Sputum culture - CXR reviwed. - Baseline 2.5 L NC - currenlty 3lNC 98% - duonebs adv Code(s): J18.9 - PNEUMONIA, UNSPECIFIED ORGANISM (2) COPD exacerbation Current Visit: No Status: Acute Assessment & Plan: - duonebs. - advair Code(s): J44.1 - CHRONIC OBSTRUCTIVE PULMONARY DISEASE W (ACUTE) EXACERBATION (3) Underweight Current Visit: Yes Status: Chronic Assessment & Plan: - nutrition consult - ensure high protein Code(s): R63.6 - UNDERWEIGHT (4) HTN (hypertension) Current Visit: Yes Status: Chronic Assessment & Plan: - Continue BP meds - PRN BP med Code(s): I10 - ESSENTIAL (PRIMARY) HYPERTENSION (5) Hyperlipemia Current Visit: Yes Status: Chronic Assessment & Plan: - Continue statin VTE: PLavix Next of KIN; D/C plan: 1-2 days Code status: Full Code(s): E78.5 - HYPERLIPIDEMIA, UNSPECIFIED Telemedicine Encounter - Telemedicine Encounter Telemedicine Encounter: "The entirety of this encounter was performed via Telemedicine" This visit was performed using real-time audio and video connection between my location and thepatients locationwith the assistance of a surrogateat the patients location. Written or verbal consent was obtained from the patient/guardian to perform this visit [facility]. Any patient questions regarding the telemedicine interaction were answered.
[2024-05-21] MEDS ORDERED: APRESOLINE 20 MG/ML INJ IV PRN (15:51)
[2024-05-21] MEDS ORDERED: MEDICATION INTERVENTION MC SCH (16:30)
[2024-05-21] MEDS: Advair Hfa 115/21 Common canister IH SCH (17:42)
[2024-05-21] MEDS: DUONEB 0.5-3 MG/3 ml Neb IH SCH (17:42)
[2024-05-21] MEDS ORDERED: DUONEB 0.5-3 MG/3 ml Neb IH SCH (19:00)
[2024-05-21] MEDS: Klor Con PO SCH (21:53)
[2024-05-21] MEDS: PLAVIX Tablet PO SCH (21:53)
[2024-05-21] MEDS: Cozaar 50 MG PO SCH (21:54)
[2024-05-21] MEDS: ECOTRIN 81 MG PO SCH (21:54)
[2024-05-21] MEDS: ZOCOR 20MG PO SCH (21:54)
[2024-05-21] MEDS ORDERED: NON-FORMULARY ITEM (Budesonide/Glycopyr/Formoterol [Breztri Aerosphere Inhaler] 10.7 GM Hf IH SCH (22:00)
[2024-05-22 05:29] LABS: Absolute Neutrophil Ct (ANC) 3.71 x10^3/uL (1.78-5.38); BASOPHIL % 0.7 % (0.2-1.2); Basophil (Absolute #) 0.04 x10^3/uL (0.01-0.08); Eosinophil % 5.4 % (0.8-7.0); Eosinophil (Absolute #) 0.32 x10^3/uL (0.04-0.54); Hematocrit 33.5 % (40.1-51.0); Hemoglobin 10.9 g/dL (13.7-17.5); IMMATURE GRAN # 0.01 x10^3u/L (0.001-0.031); IMMATURE GRAN % 0.2 % (0.001-0.429); Lymphocyte (Absolute #) 1.14 x10^3/uL (1.32-3.57); Lymphocytes % 19.2 % (21.8-53.1); Mean Corpuscular Hemoglobin 29.6 pg (25.7-32.2); Mean Corpuscular Hgb Concent. 32.5 g/dL (32.3-36.5); Mean Platelet Volume 10.8 fL (9.4-12.4); Monocyte (Absolute #) 0.73 x10^3/uL (0.30-0.82); Monocytes % 12.3 % (5.3-12.2); Neutrophil % 62.2 % (34.0-67.9); Platelet Count 169 x10^3/uL (163-337); Red Blood Count 3.68 x10^6/uL (4.63-6.08); Red Cell Distribution Width 13.2 % (11.6-14.4)
[2024-05-22 06:03] LABS: ALBUMIN 3.4 g/dL (3.5-5.0); ANION GAP 10.2 MEQ/L (5-15); BILIRUBIN,TOTAL 0.4 mg/dL (0.2-1.3); Calcium 8.4 mg/dL (8.4-10.2); Creatinine 1 0.82 mg/dL (0.66-1.25); EST GLOMERULAR FILTRATION RATE 93.3 ML/MIN; Potassium 3.9 mmol/L (3.5-5.1); Total Protein 6.3 g/dL (6.3-8.2)
[2024-05-22] MEDS: Spiriva 18 Mcg/Cap Inhaler IH SCH (06:43)
[2024-05-22 08:02] VITALS: TEMP 97.7
[2024-05-22] MEDS: ROCEPHIN 2 GM/100 ML NACL 2 GM/100 ML IVPB IV SCH (09:19)
[2024-05-22] MEDS ORDERED: ROCEPHIN 1 GM / 100 ML NaCl 1 GM/100 ML IVPB IV SCH (10:00)
--- NOTE | 2024-05-22 10:48 | PCM.DS ---
Discharge Summary Date of Admission: 05/21/24 14:29 Date of Discharge: 05/22/24 Admitting Physician: DOROTEO MORAN MD Consults: Consults on Case 05/21/24 14:34 Nutritional Consult ROUTINE Primary Care Provider: LESTER CONTRERAS Allergies Allergies No Known Drug Allergies Allergy (Verified 05/21/24 14:36) Hospital Summary - Hospital Course Hospital Course: 05/21/24 is a 73 [address] of Dr[address] Mendez who sent the patient over to have us evaluate him. He was seen at the office and complaining of mild cough and shortness of breath. Patient is on 2.5 L of oxygen via nasal cannula which is his baseline. He presented to their office with complaint of a mild cough and shortness of breath. He does not have chest pain. Patient has a history of hypertension, hyperlipidemia and is on Plavix. Per cardiology patient has a history of coronary artery disease with cardiac stent in place and mild aortic stenosis. Patient had a CT scan of the chest on 04/22/2024 at [facility] which showed pulmonary edema. Patient's oxygen saturation level on 3 L of oxygen in the emergency department iwas 99 to 100%. He reports being sick for about 2 weeks and progressively getting worse. Since a breathing treatment in the ER he is feeling much better. He does continue to have SOB and weakness. Will continue IV antibiotics and duonebs. BC x2 and sputum culture pending. Will have pt work with PT for weakness. He denies CP, Abd pain, N/V/D. 05/22/24 Pt resting in bed. He states he feels better today and would like to go home. Labs reviewed with pt. He continues to have some intermittent wheezing. He is on his BL O@ of 2.5L at 98%. He reports he does not need any refills of his breathing treatments or inhalers for home. Will continue OP antibiotics. Pt will need to f/u with PCP this week. he denies CP, SOB, abd. pain, N/V/D. - Vitals & Intake/Output Vital Signs: Vital Signs Temperature 97.7 F 05/22/24 08:00 Pulse Rate 72 05/22/24 08:00 Respiratory Rate 18 05/22/24 08:00 Blood Pressure 126/67 05/22/24 08:00 O2 Sat by Pulse Oximetry 98 05/22/24 08:00 Intake & Output: Intake & Output 05/19/24 05/20/24 05/21/24 05/22/24 11:59 11:59 11:59 11:59 Intake Total 1540 Output Total 550 Balance 990 Weight 56.699 kg 54.7 kg - Lab Result Diagrams: 05/22/24 05:23 05/22/24 05:23 Lab Results-Last 24 Hrs: Lab Results-Last 24 Hours 05/21/24 05/21/24 05/21/24 Range/Units 12:00 12:00 12:00 WBC 8.6 (4.23-9.07) x10^3/uL RBC 4.04 L (4.63-6.08) x10^6/uL Hgb 12.0 L (13.7-17.5) g/dL Hct 37.1 L (40.1-51.0) % MCV 91.8 (79.0-92.2) fL MCH 29.7 (25.7-32.2) pg MCHC 32.3 (32.3-36.5) g/dL RDW 13.0 (11.6-14.4) % Plt Count 177 (163-337) x10^3/uL MPV 10.7 (9.4-12.4) fL Gran % 75.9 H (34.0-67.9) % Immature Gran % (Auto) 0.2 (0.001-0.429) % Nucleat RBC Rel Count 0.0 (0.00-0.2) % Eos # (Auto) 0.22 (0.04-0.54) x10^3/uL Immature Gran # (Auto) 0.02 (0.001-0.031) x10^3u/L Absolute Lymphs (auto) 1.08 L (1.32-3.57) x10^3/uL Absolute Monos (auto) 0.71 (0.30-0.82) x10^3/uL Absolute Nucleated RBC 0.00 (0.00-0.012) x10^3u/L Lymphocytes % 12.5 L (21.8-53.1) % Monocytes % 8.2 (5.3-12.2) % Eosinophils % 2.6 (0.8-7.0) % Basophils % 0.6 (0.2-1.2) % Absolute Granulocytes 6.54 H (1.78-5.38) x10^3/uL Basophils # 0.05 (0.01-0.08) x10^3/uL PT 10.9 (9.4-12.5) SECONDS INR 1.00 (0.8-3.0) Sodium 138 (135-145) mmol/L Potassium 4.1 (3.5-5.1) mmol/L Chloride 99 (98-107) mmol/L Carbon Dioxide 32 H (22-30) mmol/L Anion Gap 11.1 (5-15) MEQ/L BUN 17 (9-20) mg/dL Creatinine 0.78 (0.66-1.25) mg/dL Estimated GFR 94.8 ML/MIN Glucose 99 (74-106) mg/dL Lactic Acid (0.4-2.0) Calcium 9.2 (8.4-10.2) mg/dL Magnesium 1.9 (1.6-2.3) mg/dL Total Bilirubin 1.10 (0.2-1.3) mg/dL AST 38 (17-59) U/L ALT 27 (0-50) U/L Alkaline Phosphatase 101 (38-126) U/L Troponin I (0.000-0.033) ng/mL NT-Pro-B Natriuret Pep (<300) pg/mL Serum Total Protein 7.3 (6.3-8.2) g/dL Albumin 4.1 (3.5-5.0) g/dL Influenza Type A Ag (NEGATIVE) Influenza Type B Ag (NEGATIVE) RSV (PCR) (NEGATIVE) SARS-CoV-2 (PCR) (NEGATIVE) 05/21/24 05/21/24 05/21/24 Range/Units 12:00 12:07 12:30 WBC (4.23-9.07) x10^3/uL RBC (4.63-6.08) x10^6/uL Hgb (13.7-17.5) g/dL Hct (40.1-51.0) % MCV (79.0-92.2) fL MCH (25.7-32.2) pg MCHC (32.3-36.5) g/dL RDW (11.6-14.4) % Plt Count (163-337) x10^3/uL MPV (9.4-12.4) fL Gran % (34.0-67.9) % Immature Gran % (Auto) (0.001-0.429) % Nucleat RBC Rel Count (0.00-0.2) % Eos # (Auto) (0.04-0.54) x10^3/uL Immature Gran # (Auto) (0.001-0.031) x10^3u/L Absolute Lymphs (auto) (1.32-3.57) x10^3/uL Absolute Monos (auto) (0.30-0.82) x10^3/uL Absolute Nucleated RBC (0.00-0.012) x10^3u/L Lymphocytes % (21.8-53.1) % Monocytes % (5.3-12.2) % Eosinophils % (0.8-7.0) % Basophils % (0.2-1.2) % Absolute Granulocytes (1.78-5.38) x10^3/uL Basophils # (0.01-0.08) x10^3/uL PT (9.4-12.5) SECONDS INR (0.8-3.0) Sodium (135-145) mmol/L Potassium (3.5-5.1) mmol/L Chloride (98-107) mmol/L Carbon Dioxide (22-30) mmol/L Anion Gap (5-15) MEQ/L BUN (9-20) mg/dL Creatinine (0.66-1.25) mg/dL Estimated GFR ML/MIN Glucose (74-106) mg/dL Lactic Acid 1.4 (0.4-2.0) Calcium (8.4-10.2) mg/dL Magnesium (1.6-2.3) mg/dL Total Bilirubin (0.2-1.3) mg/dL AST (17-59) U/L ALT (0-50) U/L Alkaline Phosphatase (38-126) U/L Troponin I < 0.012 (0.000-0.033) ng/mL NT-Pro-B Natriuret Pep 692 (<300) pg/mL Serum Total Protein (6.3-8.2) g/dL Albumin (3.5-5.0) g/dL Influenza Type A Ag NEGATIVE (NEGATIVE) Influenza Type B Ag NEGATIVE (NEGATIVE) RSV (PCR) NEGATIVE (NEGATIVE) SARS-CoV-2 (PCR) NEGATIVE (NEGATIVE) 05/21/24 05/21/24 05/22/24 Range/Units 16:05 20:00 05:23 WBC 6.0 (4.23-9.07) x10^3/uL RBC 3.68 L (4.63-6.08) x10^6/uL Hgb 10.9 L (13.7-17.5) g/dL Hct 33.5 L (40.1-51.0) % MCV 91.0 (79.0-92.2) fL MCH 29.6 (25.7-32.2) pg MCHC 32.5 (32.3-36.5) g/dL RDW 13.2 (11.6-14.4) % Plt Count 169 (163-337) x10^3/uL MPV 10.8 (9.4-12.4) fL Gran % 62.2 (34.0-67.9) % Immature Gran % (Auto) 0.2 (0.001-0.429) % Nucleat RBC Rel Count 0.0 (0.00-0.2) % Eos # (Auto) 0.32 (0.04-0.54) x10^3/uL Immature Gran # (Auto) 0.01 (0.001-0.031) x10^3u/L Absolute Lymphs (auto) 1.14 L (1.32-3.57) x10^3/uL Absolute Monos (auto) 0.73 (0.30-0.82) x10^3/uL Absolute Nucleated RBC 0.00 (0.00-0.012) x10^3u/L Lymphocytes % 19.2 L (21.8-53.1) % Monocytes % 12.3 H (5.3-12.2) % Eosinophils % 5.4 (0.8-7.0) % Basophils % 0.7 (0.2-1.2) % Absolute Granulocytes 3.71 (1.78-5.38) x10^3/uL Basophils # 0.04 (0.01-0.08) x10^3/uL PT (9.4-12.5) SECONDS INR (0.8-3.0) Sodium (135-145) mmol/L Potassium (3.5-5.1) mmol/L Chloride (98-107) mmol/L Carbon Dioxide (22-30) mmol/L Anion Gap (5-15) MEQ/L BUN (9-20) mg/dL Creatinine (0.66-1.25) mg/dL Estimated GFR ML/MIN Glucose (74-106) mg/dL Lactic Acid (0.4-2.0) Calcium (8.4-10.2) mg/dL Magnesium (1.6-2.3) mg/dL Total Bilirubin (0.2-1.3) mg/dL AST (17-59) U/L ALT (0-50) U/L Alkaline Phosphatase (38-126) U/L Troponin I < 0.012 < 0.012 (0.000-0.033) ng/mL NT-Pro-B Natriuret Pep (<300) pg/mL Serum Total Protein (6.3-8.2) g/dL Albumin (3.5-5.0) g/dL Influenza Type A Ag (NEGATIVE) Influenza Type B Ag (NEGATIVE) RSV (PCR) (NEGATIVE) SARS-CoV-2 (PCR) (NEGATIVE) 05/22/24 Range/Units 05:23 WBC (4.23-9.07) x10^3/uL RBC (4.63-6.08) x10^6/uL Hgb (13.7-17.5) g/dL Hct (40.1-51.0) % MCV (79.0-92.2) fL MCH (25.7-32.2) pg MCHC (32.3-36.5) g/dL RDW (11.6-14.4) % Plt Count (163-337) x10^3/uL MPV (9.4-12.4) fL Gran % (34.0-67.9) % Immature Gran % (Auto) (0.001-0.429) % Nucleat RBC Rel Count (0.00-0.2) % Eos # (Auto) (0.04-0.54) x10^3/uL Immature Gran # (Auto) (0.001-0.031) x10^3u/L Absolute Lymphs (auto) (1.32-3.57) x10^3/uL Absolute Monos (auto) (0.30-0.82) x10^3/uL Absolute Nucleated RBC (0.00-0.012) x10^3u/L Lymphocytes % (21.8-53.1) % Monocytes % (5.3-12.2) % Eosinophils % (0.8-7.0) % Basophils % (0.2-1.2) % Absolute Granulocytes (1.78-5.38) x10^3/uL Basophils # (0.01-0.08) x10^3/uL PT (9.4-12.5) SECONDS INR (0.8-3.0) Sodium 141 (135-145) mmol/L Potassium 3.9 (3.5-5.1) mmol/L Chloride 103 (98-107) mmol/L Carbon Dioxide 32 H (22-30) mmol/L Anion Gap 10.2 (5-15) MEQ/L BUN 18 (9-20) mg/dL Creatinine 0.82 (0.66-1.25) mg/dL Estimated GFR 93.3 ML/MIN Glucose 111 H (74-106) mg/dL Lactic Acid (0.4-2.0) Calcium 8.4 (8.4-10.2) mg/dL Magnesium (1.6-2.3) mg/dL Total Bilirubin 0.40 (0.2-1.3) mg/dL AST 28 (17-59) U/L ALT 19 (0-50) U/L Alkaline Phosphatase 74 (38-126) U/L Troponin I (0.000-0.033) ng/mL NT-Pro-B Natriuret Pep 835 (<300) pg/mL Serum Total Protein 6.3 (6.3-8.2) g/dL Albumin 3.4 L (3.5-5.0) g/dL Influenza Type A Ag (NEGATIVE) Influenza Type B Ag (NEGATIVE) RSV (PCR) (NEGATIVE) SARS-CoV-2 (PCR) (NEGATIVE) - Radiology Exams Ordered Rad Exams-Entire Visit: Radiology Procedures Category Date Time Status CHEST WITHOUT CONTRAST [CT] Stat Exams 10/23/24 11:59 Completed - Procedures and Test Procedures and Tests throughout Hospitalization: Therapy Orders & Screens 05/21/24 12:14 Respiratory Therapy Assessment DAILY Comment: 05/21/24 14:34 EKG REPEAT IN AM Comment: Respiratory Therapy Consult ONCE Comment: Reason For Exam: 05/21/24 15:05 RT Screen per Nursing Assess ONCE Comment: Protocol Order Physician Instructions: Greater than 3 points order RT Admission Screen Reason For Exam: Triggered on Admission Diagnosis: RIGTH MIDDLE LOBE PNEUMONIA Diagnosis: RIGTH MIDDLE LOBE PNEUMONIA Pneumonia: Yes Home O2: Yes Home Nebs/MDI: Yes Total Points: 13 ST Screen per Nursing Assess ONCE Comment: Protocol Order Physician Instructions: Greater than [address] Admission Screening Reason For Exam: Triggered on Admission Diagnosis: RIGTH MIDDLE LOBE PNEUMONIA CVA/Dyshpagia/Aphasia: No Cognitive Deficits: No Dehydration/Nutrition Deficit: No Reflux: No Oral-Motor Difficulties: No Pneumonia: Yes Skilled Nursing Resident: No Total Points: 5 05/21/24 15:16 Oxygen Nasal Cannula 2.5 lpm Comment: Diagnosis: RIGTH MIDDLE LOBE PNEUMONIA Discharge Exam General Appearance: no apparent distress, alert Neurologic Exam: alert, oriented x 3, cooperative, normal mood/affect, nml cerebellar function, sensation nml, No motor deficits Eye Exam: PERRL, EOMI, eyes nml inspection Ears, Nose, Throat Exam: normal ENT inspection, pharynx normal, moist mucous membranes Neck Exam: normal inspection, non-tender, supple, full range of motion Respiratory Exam: normal breath sounds, lungs clear, wheezing, No respiratory distress Cardiovascular Exam: regular rate/rhythm, normal heart sounds Gastrointestinal/Abdomen Exam: soft, No tenderness, No mass Male Genitalia Exam: deferred Rectal Exam: deferred Back Exam: normal inspection, normal range of motion, No CVA tenderness, No vertebral tenderness Extremity Exam: normal inspection, normal range of motion Skin Exam: normal color, warm, dry Final Diagnosis/Problem List - Final Discharge Diagnosis/Problem (1) Right middle lobe pneumonia Current Visit: Yes Status: Acute Code(s): J18.9 - PNEUMONIA, UNSPECIFIED ORGANISM (2) COPD exacerbation Current Visit: No Status: Acute Code(s): J44.1 - CHRONIC OBSTRUCTIVE PULMONARY DISEASE W (ACUTE) EXACERBATION (3) Underweight Current Visit: Yes Status: Chronic Code(s): R63.6 - UNDERWEIGHT (4) HTN (hypertension) Current Visit: Yes Status: Chronic Code(s): I10 - ESSENTIAL (PRIMARY) HYPERTENSION (5) Hyperlipemia Current Visit: Yes Status: Chronic Assessment & Plan: (1) Right middle lobe pneumonia Current Visit: Yes Status: Acute Assessment & Plan: - BC x2 pending - IV antibiotics - CBC and CMP reviewed - Sputum culture - CXR reviwed. - Baseline 2.5 L NC - currenlty 3lNC 98% - duonebs, advair 05/22 - CBC, CMP reviewed - on BL O2 of 2.5 LNC- 98% - Continue OP antibiotics Code(s): J18.9 - PNEUMONIA, UNSPECIFIED ORGANISM (2) COPD exacerbation Current Visit: No Status: Acute Assessment & Plan: - duonebs. - advair Code(s): J44.1 - CHRONIC OBSTRUCTIVE PULMONARY DISEASE W (ACUTE) EXACERBATION (3) Underweight Current Visit: Yes Status: Chronic Assessment & Plan: - nutrition consult - ensure high protein Code(s): R63.6 - UNDERWEIGHT (4) HTN (hypertension) Current Visit: Yes Status: Chronic Assessment & Plan: - Continue BP meds - PRN BP med Code(s): I10 - ESSENTIAL (PRIMARY) HYPERTENSION (5) Hyperlipemia Current Visit: Yes Status: Chronic Assessment & Plan: - Continue statin Code(s): E78.5 - HYPERLIPIDEMIA, UNSPECIFIED - Discharge Discharge Date: 05/22/24 Disposition: Home, Self-Care Condition: Stable Prescriptions: Continue Nitroglycerin 0.4 mg Tablet [Nitrostat 0.4 MG Tablet] 0.4 mg SL Q5MIN PRN MR X 3 PRN PRN Reason: Chest Pain Aspirin EC 81 mg [Ecotrin 81 mg] 81 mg PO HS Losartan Potassium [Cozaar] 12.5 mg PO HS Clopidogrel Bisulfate [Clopidogrel] 75 mg PO HS Atorvastatin Calcium 80 mg PO HS Potassium Chloride 10 meq PO HS Albuterol 2.5 mg/3 ml Neb [Proventil 2.5 mg/3 ml Neb] 1 neb IH Q4HPRN PRN PRN Reason: Shortness Of Breath/Wheezing Albuterol Common Canister [Ventolin Common Canister] 1 puff IH Q4HPRN PRN PRN Reason: Shortness Of Breath/Wheezing Budesonide/Glycopyr/Formoterol [Breztri Aerosphere Inhaler] 2 puff IH BID Instructions: Pneumonia in adults Follow up with: LESTER CONTRERAS BLEACH MAKER [Primary Care Provider] - 05/27/24 3:00 pm
[2024-05-22 11:39] VITALS: BP 114/56
[2024-05-22 12:59] VITALS: PULSE 87; RESP 20; O2SAT 94
== END 2024-05-22 13:50 | disposition home or self-care (01) ==
LOC: ED 11:25 → MED SURG 14:29
PROVIDERS: ADMIT Internal Medicine; ATTEND Internal Medicine
DX: J18.9 Pneumonia, unspecified organism (principal); J44.1 Chronic obstructive pulmonary disease with (acute) exacerbation; R63.6 Underweight; I10 Essential (primary) hypertension; E78.5 Hyperlipidemia, unspecified; Z79.899 Other long term (current) drug therapy; Z99.81 Dependence on supplemental oxygen; Z79.01 Long term (current) use of anticoagulants
CPT/HCPCS: 0241U; 36000; 36415; 71250; 80053; 83605; 83735; 83880; 84484; 85025; 85610; 87040; 93005; 93268; 94640; 94760; 96365; 99285; G0378; J0456; J0696; A9270-GY

== ENCOUNTER 2025-04-18 14:40 | Emergency (ER) | payer MEDICARE ==
[2025-04-18 14:57] VITALS: TEMP 97.3
--- NOTE | 2025-04-18 14:59 | ERPHSYRPT ---
- History of Present Illness Patient Subjective Stated Complaint: patient brought in by his son said he always has trouble but he took his medications this morning and he is feeling worse than ever Triage Nursing Assessment: pt is alert nad [id number], came in by wheelchair son drove him, says he started becoming more short of breath unableto to catch his breath even at rest today. took morning medications and it has continued to get worse throughout the day. skin warm dry and intact, lung sounds are diminished, pulses equal bilateral radius Hx Tetanus, Diphtheria Vaccination/Date Given: Yes Hx Influenza Vaccination/Date Given: No Hx Pneumococcal Vaccination/Date Given: Yes <TOBY CHAMORRO - Last Filed: 04/18/25 18:48> - History of Present Illness Source: patient, family Exam Limitations: no limitations Timing/Duration: today Severity of Dyspnea-Max: moderate Severity of Dyspnea-Current: moderate <SYLVESTER TORIBIO - Last Filed: 04/19/25 02:32> - History of Present Illness Time Seen by Provider: 04/18/25 14:40 Physician History: This is a 74-year-old white male with a history of "bad heart" and COPD who presents to the ER with increasing shortness of breath weight loss and generalized weakness for "a long time". Patient denies chest pain pressure heaviness cough or hemoptysis patient does admit as stated earlier to her large weight loss no night sweats patient does have orthopnea but no pedal edema. No fevers or chills. (TOBY CHAMORRO) Allergies/Adverse Reactions: No Known Drug Allergies Allergy (Verified 04/18/25 14:41) Home Medications: Aspirin EC 81 mg [Ecotrin 81 mg] 81 mg PO HS 03/06/24 [History] Atorvastatin Calcium 80 mg PO HS 03/06/24 [History] Clopidogrel Bisulfate [Clopidogrel] 75 mg PO HS 03/06/24 [History] Losartan Potassium [Cozaar] 12.5 mg PO HS 03/06/24 [History] Nitroglycerin 0.4 mg Tablet [Nitrostat 0.4 MG Tablet] 0.4 mg SL Q5MIN PRN MR X 3 PRN 03/06/24 [History] Albuterol 2.5 mg/3 ml Neb [Proventil 2.5 mg/3 ml Neb] 1 neb IH Q4HPRN PRN 05/21/24 [History] Albuterol Common Canister [Ventolin Common Canister] 1 puff IH Q4HPRN PRN 05/21/24 [History] Budesonide/Glycopyr/Formoterol [Breztri Aerosphere Inhaler] 2 puff IH BID 05/21/24 [History] Potassium Chloride 10 meq PO HS 05/21/24 [History] Travel Risk - International Travel Have you traveled outside of the country in past 3 weeks: No - Emerging Infectious Disease Are you exhibiting symptoms associated with any current EIDs: No Symptoms: Cough: New Onset, Shortness of Breath <TOBY CHAMORRO - Last Filed: 04/18/25 18:48> - Review of Systems Constitutional: No Fever, No Chills Eyes: No Symptoms Ears, Nose, & Throat: No Symptoms Respiratory: Dyspnea, No Cough Cardiac: Orthopnea, No Chest Pain, No Edema, No Syncope Abdominal/Gastrointestinal: No Abdominal Pain, No Nausea, No Vomiting, No Diarrhea Genitourinary Symptoms: No Dysuria Musculoskeletal: No Back Pain, No Neck Pain Skin: No Rash Neurological: No Dizziness, No Focal Weakness, No Sensory Changes Psychological: No Symptoms Endocrine: No Symptoms All Other Systems: Reviewed and Negative <TOBY CHAMORRO - Last Filed: 04/18/25 18:48> - Past Medical History Pertinent Past Medical History: Yes Neurological History: No Pertinent History ENT History: No Pertinent History Cardiac History: High Cholesterol, Hypertension Respiratory History: COPD Endocrine Medical History: No Pertinent History Musculoskeletal History: No Pertinent History GI Medical History: No Pertinent History History: No Pertinent History Psycho-Social History: Anxiety, Depression Male Reproductive Disorders: No Pertinent History - Past Surgical History Past Surgical History: Yes Neuro Surgical History: No Pertinent History Cardiac: Cardiac Catheterization, Cardiac Stent Respiratory: No Pertinent History Gastrointestinal: Hernia Repair Genitourinary: No Pertinent History Musculoskeletal: No Pertinent History Male Surgical History: No Pertinent History Significant Family History: no pertinent family hx - Social History Smoking Status: Former smoker Exposure to second hand smoke: Yes Drug Use: none - Social Determinants of Health Will the patient participate in the screening: Yes Do you worry about a steady place to live?: No Do you have any problems with any of the following?: No known problems In the past 12 months,have you had to go without utilities?: No Transportation Issues: No Has anyone in your support network made you feel unsafe?: No Have you or anyone in your house had to go w/o enough food: No <TOBY CHAMORRO - Last Filed: 04/18/25 18:48> - Physical Exam General Appearance: no apparent distress, alert Eye Exam: PERRL/EOMI Neck Exam: normal inspection, supple Respiratory Exam: diminished breath sounds Cardiovascular/Chest Exam: normal heart sounds, regular rate/rhythm Abdominal/Gastrointestinal Exam: soft, No tenderness, No distention, No mass Extremity Exam: non-tender, normal range of motion, normal inspection, no calf tenderness, no pedal edema Neurologic Exam: alert, oriented x 3, cooperative, score caller II-XII nml as tested, sensation nml, No motor deficits Skin Exam: normal color, warm, No dry SpO2 Interpretation: normal SpO2: 100 <TOBY CHAMORRO - Last Filed: 04/18/25 18:48> - Nursing Vital Signs Nursing Vital Signs: Initial Vital Signs Temperature 97.3 F 04/18/25 14:40 Pulse Rate 79 04/18/25 14:40 Respiratory Rate 16 04/18/25 14:40 Blood Pressure 121/96 04/18/25 14:40 O2 Sat by Pulse Oximetry 98 04/18/25 14:40 Pain Scale Pain Intensity 4 Ordered Tests: Active Orders 24 hr Category Date Time Status CHEST 1 VIEW (PORTABLE) Stat Exams 04/18/25 14:56 Completed CHEST WITH CONTRAST [CT] Stat Exams 04/18/25 17:06 Completed BLOOD CULTURE Stat Lab 04/18/25 14:56 Received CBC W DIFF Stat Lab 04/18/25 15:20 Completed CMP Stat Lab 04/18/25 15:20 Completed D-DIMER QUANTITATIVE Stat Lab 04/18/25 15:20 Completed Lactic Acid Stat Lab 04/18/25 14:55 Completed MAGNESIUM Stat Lab 04/18/25 15:20 Completed NT PRO BNPII Stat Lab 04/18/25 15:20 Completed PROTIME WITH INR Stat Lab 04/18/25 15:20 Completed PTT Stat Lab 04/18/25 15:20 Completed TROPONIN Q4H Lab 04/18/25 15:20 Completed TROPONIN Q4H Lab 04/18/25 18:35 Completed TROPONIN Q4H Lab 04/18/25 22:55 Completed UA W/RFX UR CULTURE Stat Lab 04/18/25 22:07 Completed Respiratory Therapy Assessment DAILY RT 04/18/25 15:19 Completed Respiratory Therapy Assessment DAILY RT 04/18/25 21:54 Active Medication Summary Discontinued Medications Generic Name Dose Route Start Last Admin Trade Name Danya PRN Reason Stop Dose Admin Albuterol/Ipratropium Confirm 04/18/25 15:05 Ipratropium/Albuterol Sulfate 3 Ml Ampul.Neb Administered 04/18/25 15:06 Dose 3 ml IH .STK-MED ONE Albuterol/Ipratropium 3 ml 04/18/25 15:20 04/18/25 15:20 Ipratropium/Albuterol Sulfate 3 Ml Ampul.Neb IH 04/18/25 15:21 3 ml STAT ONE Administration Albuterol/Ipratropium 3 ml 04/18/25 21:47 04/18/25 21:52 Ipratropium/Albuterol Sulfate 3 Ml Ampul.Neb IH 04/18/25 21:48 3 ml STAT ONE Administration Albuterol/Ipratropium Confirm 04/18/25 21:50 Ipratropium/Albuterol Sulfate 3 Ml Ampul.Neb Administered 04/18/25 21:51 Dose 3 ml IH .STK-MED ONE Methylprednisolone Sodium 0 mg 04/18/25 21:33 04/18/25 21:38 Succinate 125 mg/ Sterile IV 04/18/25 21:34 125 mg Water 2 ml STAT ONE Administration Ceftriaxone Sodium 1 gm in 100 mls @ 200 mls/hr 04/18/25 21:54 04/18/25 23:00 Rocephin 1 Gm / 100 Ml Nacl IV 04/18/25 22:23 Infused STAT ONE Infusion Ceftriaxone Sodium Confirm 04/18/25 21:57 Rocephin 1 Gm / 100 Ml Nacl Administered 04/18/25 21:58 Dose 1 gm in 100 mls @ ud IV .STK-MED ONE Methylprednisolone Sodium Succinate Confirm 04/18/25 21:36 Methylprednis Sod Succ 125 Mg/2 Ml Vial Administered 04/18/25 21:37 Dose 125 mg .ROUTE .STK-MED ONE Sterile Water Confirm 04/18/25 21:36 Water For Injection,Sterile 10 Ml Vial Administered 04/18/25 21:37 Dose 10 ml IJ .[facility]-MED ONE Lab/Rad Data: Laboratory Result Diagrams 04/18/25 15:20 04/18/25 15:20 Laboratory Results 04/18/25 04/18/25 04/18/25 Range/Units 22:55 22:07 18:35 WBC (4.23-9.07) x10^3/uL RBC (4.63-6.08) x10^6/uL Hgb (13.7-17.5) g/dL Hct (40.1-51.0) % MCV (79.0-92.2) fL MCH (25.7-32.2) pg MCHC (32.3-36.5) g/dL RDW (11.6-14.4) % Plt Count (163-337) x10^3/uL MPV (9.4-12.4) fL Gran % (34.0-67.9) % Immature Gran % (Auto) (0.001-0.429) % Nucleat RBC Rel Count (0.00-0.2) % Eos # (Auto) (0.04-0.54) x10^3/uL Immature Gran # (Auto) (0.001-0.031) x10^3u/L Absolute Lymphs (auto) (1.32-3.57) x10^3/uL Absolute Monos (auto) (0.30-0.82) x10^3/uL Absolute Nucleated RBC (0.00-0.012) x10^3u/L Lymphocytes % (21.8-53.1) % Monocytes % (5.3-12.2) % Eosinophils % (0.8-7.0) % Basophils % (0.2-1.2) % Absolute Granulocytes (1.78-5.38) x10^3/uL Basophils # (0.01-0.08) x10^3/uL PT (9.4-12.5) SECONDS INR (0.8-3.0) APTT (25.1-36.5) SECONDS D-Dimer (0.0-0.50) mg/L Sodium (135-145) mmol/L Potassium (3.5-5.1) mmol/L Chloride (98-107) mmol/L Carbon Dioxide (22-30) mmol/L Anion Gap (5-15) MEQ/L BUN (9-20) mg/dL Creatinine (0.66-1.25) mg/dL Estimated GFR ML/MIN Glucose (74-106) mg/dL Lactic Acid (0.4-2.0) Calcium (8.4-10.2) mg/dL Magnesium (1.6-2.3) mg/dL Total Bilirubin (0.2-1.3) mg/dL AST (17-59) U/L ALT (0-50) U/L Alkaline Phosphatase (38-126) U/L Troponin I < 0.012 < 0.012 (0.000-0.033) ng/mL NT-Pro-B Natriuret Pep (<300) pg/mL Serum Total Protein (6.3-8.2) g/dL Albumin (3.5-5.0) g/dL Urine Color Yellow (Yellow) Urine Appearance Clear (Clear) Urine pH 7.5 (4.6-8.0) Ur Specific Stow >=1.030 A (1.005-1.030) Urine Protein Negative (Negative) Urine Glucose (UA) Negative (Negative) mg/dL Urine Ketones Negative (Negative) Urine Blood Negative (Negative) Urine Nitrite Negative (Negative) Urine Bilirubin Negative (Negative) Urine Urobilinogen 1.0 A (0.2) mg/dL Ur Leukocyte Esterase Negative (Negative) U Hyaline Cast (Auto) NONE SEEN (0-2) /LPF Urine Microscopic RBC 0-2 (0-5) /HPF Urine Microscopic WBC 0-2 (0-5) /HPF Ur Epithelial Cells None Seen (None Seen) /HPF Urine Bacteria None Seen (None Seen) /HPF Urine Culture Reflexed NO (NO) Influenza Type A Ag (NEGATIVE) Influenza Type B Ag (NEGATIVE) RSV (PCR) (NEGATIVE) SARS-CoV-2 (PCR) (NEGATIVE) 04/18/25 04/18/25 04/18/25 Range/Units 16:00 15:20 15:20 WBC (4.23-9.07) x10^3/uL RBC (4.63-6.08) x10^6/uL Hgb (13.7-17.5) g/dL Hct (40.1-51.0) % MCV (79.0-92.2) fL MCH (25.7-32.2) pg MCHC (32.3-36.5) g/dL RDW (11.6-14.4) % Plt Count (163-337) x10^3/uL MPV (9.4-12.4) fL Gran % (34.0-67.9) % Immature Gran % (Auto) (0.001-0.429) % Nucleat RBC Rel Count (0.00-0.2) % Eos # (Auto) (0.04-0.54) x10^3/uL Immature Gran # (Auto) (0.001-0.031) x10^3u/L Absolute Lymphs (auto) (1.32-3.57) x10^3/uL Absolute Monos (auto) (0.30-0.82) x10^3/uL Absolute Nucleated RBC (0.00-0.012) x10^3u/L Lymphocytes % (21.8-53.1) % Monocytes % (5.3-12.2) % Eosinophils % (0.8-7.0) % Basophils % (0.2-1.2) % Absolute Granulocytes (1.78-5.38) x10^3/uL Basophils # (0.01-0.08) x10^3/uL PT 10.2 (9.4-12.5) SECONDS INR 0.93 (0.8-3.0) APTT 22.5 L (25.1-36.5) SECONDS D-Dimer 1.91 H* (0.0-0.50) mg/L Sodium (135-145) mmol/L Potassium (3.5-5.1) mmol/L Chloride (98-107) mmol/L Carbon Dioxide (22-30) mmol/L Anion Gap (5-15) MEQ/L BUN (9-20) mg/dL Creatinine (0.66-1.25) mg/dL Estimated GFR ML/MIN Glucose (74-106) mg/dL Lactic Acid (0.4-2.0) Calcium (8.4-10.2) mg/dL Magnesium (1.6-2.3) mg/dL Total Bilirubin (0.2-1.3) mg/dL AST (17-59) U/L ALT (0-50) U/L Alkaline Phosphatase (38-126) U/L Troponin I < 0.012 (0.000-0.033) ng/mL NT-Pro-B Natriuret Pep 410 (<300) pg/mL Serum Total Protein (6.3-8.2) g/dL Albumin (3.5-5.0) g/dL Urine Color (Yellow) Urine Appearance (Clear) Urine pH (4.6-8.0) Ur Specific Stow (1.005-1.030) Urine Protein (Negative) Urine Glucose (UA) (Negative) mg/dL Urine Ketones (Negative) Urine Blood (Negative) Urine Nitrite (Negative) Urine Bilirubin (Negative) Urine Urobilinogen (0.2) mg/dL Ur Leukocyte Esterase (Negative) U Hyaline Cast (Auto) (0-2) /LPF Urine Microscopic RBC (0-5) /HPF Urine Microscopic WBC (0-5) /HPF Ur Epithelial Cells (None Seen) /HPF Urine Bacteria (None Seen) /HPF Urine Culture Reflexed (NO) Influenza Type A Ag NEGATIVE (NEGATIVE) Influenza Type B Ag NEGATIVE (NEGATIVE) RSV (PCR) NEGATIVE (NEGATIVE) SARS-CoV-2 (PCR) NEGATIVE (NEGATIVE) 04/18/25 04/18/25 04/18/25 Range/Units 15:20 15:20 14:55 WBC 9.1 H (4.23-9.07) x10^3/uL RBC 4.34 L (4.63-6.08) x10^6/uL Hgb 13.0 L (13.7-17.5) g/dL Hct 41.7 (40.1-51.0) % MCV 96.1 H (79.0-92.2) fL MCH 30.0 (25.7-32.2) pg MCHC 31.2 L (32.3-36.5) g/dL RDW 12.8 (11.6-14.4) % Plt Count 223 (163-337) x10^3/uL MPV 10.2 (9.4-12.4) fL Gran % 78.1 H (34.0-67.9) % Immature Gran % (Auto) 0.6 H (0.001-0.429) % Nucleat RBC Rel Count 0.0 (0.00-0.2) % Eos # (Auto) 0.27 (0.04-0.54) x10^3/uL Immature Gran # (Auto) 0.05 H (0.001-0.031) x10^3u/L Absolute Lymphs (auto) 1.00 L (1.32-3.57) x10^3/uL Absolute Monos (auto) 0.57 (0.30-0.82) x10^3/uL Absolute Nucleated RBC 0.00 (0.00-0.012) x10^3u/L Lymphocytes % 11.0 L (21.8-53.1) % Monocytes % 6.3 (5.3-12.2) % Eosinophils % 3.0 (0.8-7.0) % Basophils % 1.0 (0.2-1.2) % Absolute Granulocytes 7.10 H (1.78-5.38) x10^3/uL Basophils # 0.09 H (0.01-0.08) x10^3/uL PT (9.4-12.5) SECONDS INR (0.8-3.0) APTT (25.1-36.5) SECONDS D-Dimer (0.0-0.50) mg/L Sodium 139 (135-145) mmol/L Potassium 4.4 (3.5-5.1) mmol/L Chloride 98 (98-107) mmol/L Carbon Dioxide 34 H (22-30) mmol/L Anion Gap 11.2 (5-15) MEQ/L BUN 20 (9-20) mg/dL Creatinine 0.89 (0.66-1.25) mg/dL Estimated GFR 90.5 ML/MIN Glucose 116 H (74-106) mg/dL Lactic Acid 1.3 (0.4-2.0) Calcium 9.5 (8.4-10.2) mg/dL Magnesium 2.0 (1.6-2.3) mg/dL Total Bilirubin 0.90 (0.2-1.3) mg/dL AST 39 (17-59) U/L ALT 22 (0-50) U/L Alkaline Phosphatase 92 (38-126) U/L Troponin I (0.000-0.033) ng/mL NT-Pro-B Natriuret Pep (<300) pg/mL Serum Total Protein 8.3 H (6.3-8.2) g/dL Albumin 4.7 (3.5-5.0) g/dL Urine Color (Yellow) Urine Appearance (Clear) Urine pH (4.6-8.0) Ur Specific Stow (1.005-1.030) Urine Protein (Negative) Urine Glucose (UA) (Negative) mg/dL Urine Ketones (Negative) Urine Blood (Negative) Urine Nitrite (Negative) Urine Bilirubin (Negative) Urine Urobilinogen (0.2) mg/dL Ur Leukocyte Esterase (Negative) U Hyaline Cast (Auto) (0-2) /LPF Urine Microscopic RBC (0-5) /HPF Urine Microscopic WBC (0-5) /HPF Ur Epithelial Cells (None Seen) /HPF Urine Bacteria (None Seen) /HPF Urine Culture Reflexed (NO) Influenza Type A Ag (NEGATIVE) Influenza Type B Ag (NEGATIVE) RSV (PCR) (NEGATIVE) SARS-CoV-2 (PCR) (NEGATIVE) - Progress Progress: unchanged Air Movement: fair <TOBY CHAMORRO - Last Filed: 04/18/25 18:48> - Progress Progress: improved, re-examined Air Movement: good Blood Culture(s) Obtained: No Antibiotics given: Yes Discussed with DrJoshua: Other (Operating Theatre Technician Dr. Holden at ) Will see patient in: office Counseled pt/family regarding: lab results, diagnosis, need for follow-up, rad results <SYLVESTER TORIBIO - Last Filed: 04/19/25 02:32> - Progress Progress Note: 04/18/25 18:48 Patient twelve-lead EKG reveals sinus rhythm at 74 bpm normal axis LVH RSR prime nonspecific ST-T wave changes. Patient had a chest x-ray read by me as no acute disease patient CBC was normal his chemistry within normal limits COVID and flu were negative BNP was 410 troponin was negative lactate 1.3 and the D- dimer was elevated at 1.9. Still pending is a CTA to rule out pulmonary embolism. I will signout the patient to the oncoming physician for final disposition. Differential diagnosis bronchitis pneumonia pulmonary embolism (TOBY CHAMORRO) 04/18/25 21:52 I noted that the pt had not had steroids during the previous workup prior to handoff, so we a giving a trial and will then plan to consult hospitalist to consider admission. 04/18/25 23:12 discussed with pt and he still does not feel well even after steroids and would like to stay if possible . I explained that we will need to consult the hospitalist. 04/18/25 23:35 discussed with hospitalist and he is concerned on the peaked t waves for cardiac and pt also will agree to transfer to if accepted there so we will consult them. 04/18/25 23:[address] Soriano at felt EKG was normal and felt more neg trop would exclude this. Will consult our hospitalist again to discuss. 04/19/25 01:11 awaiting the hospitalist now and this has been delayed. 04/19/25 01:40 consulting now with [facility] er 04/19/25 02:21 THe pts consulting cardio group has caroline us inputs and looked at his EKG and has opined that he does not have ACS at this imte and can be DC'd to outpt f/u. We have advised hime that a heart attack could still occur and he is at risk for sudden and he prefers outpt f/u rather than further w/u in ER at this time or hospital admission and has the capacity to make this choice- I have emphasized to pt and family to f/u [facility] back with his Operating Theatre Technician [facility] ehe is at risk for this and we will meantime tx his COPD exacerbation with levaquin and medrol as pt requests. 04/19/25 02:26 He has no CP at this time and has improved on breathing symptoms. (SYLVESTER TORIBIO) Medical Desision Making - Independent Historian Additional History obtained from: Family - Discussion of managment Care discussed with:: specialist Reviewed:: Test results, Need for additional workup Agreed on:: Treatment plan, need for follow-up Will see patient: In office <SYLVESTER TORIBIO - Last Filed: 04/19/25 02:32> - Departure Critical Care Time: No <TOBY CHAMORRO - Last Filed: 04/18/25 18:48> - Departure Departure Disposition: Home <SYLVESTER TORIBIO - Last Filed: 04/19/25 02:32> - Departure Clinical Impression: Shortness of breath, COPD exacerbation Condition: Good Referrals: LESTER CONTRERAS S[employer]ER MECHANIC [Primary Care Provider, UNKNOWN] - Follow up/PCP as directed Instructions: Exacerbation of COPD (DC), Shortness of Breath (Dyspnea) (DC), Coronary artery disease, Chronic Obstructive Pulmonary Disease Additional Instructions: Followup with your Operating Theatre Technician [place]. Although we are treating your exacerbation of COPD and did not find an active cardiac event, you still are at risk for this at any time and this followup is important. Return or call [phone] meantime if not improving or any symptoms of concern like before. Prescriptions: Levofloxacin [Levofloxacin 500 MG Tablet] 500 mg PO QAM #10 tablet Methylprednisolone Packet [Medrol Dosepack] 4 mg PO UD #30 packet
[2025-04-18] MEDS ORDERED: DUONEB 0.5-3 MG/3 ml Neb IH ONE ×2 (15:05→21:50)
[2025-04-18] MEDS: DUONEB 0.5-3 MG/3 ml Neb IH ONE ×2 (15:20→21:52)
[2025-04-18 15:22] LABS: BASOPHIL % 1.0 % (0.2-1.2); Basophil (Absolute #) 0.09 x10^3/uL (0.01-0.08); Eosinophil (Absolute #) 0.27 x10^3/uL (0.04-0.54); Hematocrit 41.7 % (40.1-51.0); Hemoglobin 13.0 g/dL (13.7-17.5); IMMATURE GRAN # 0.05 x10^3u/L (0.001-0.031); IMMATURE GRAN % 0.6 % (0.001-0.429); Lymphocyte (Absolute #) 1.00 x10^3/uL (1.32-3.57); Mean Corpuscular Hemoglobin 30.0 pg (25.7-32.2); Mean Corpuscular Hgb Concent. 31.2 g/dL (32.3-36.5); Monocyte (Absolute #) 0.57 x10^3/uL (0.30-0.82); NUCLEATED RBC # 0.00 x10^3u/L (0.00-0.012); NUCLEATED RBC % 0.0 % (0.00-0.2); Platelet Count 223 x10^3/uL (163-337); Red Blood Count 4.34 x10^6/uL (4.63-6.08); White Blood Count 9.1 x10^3/uL (4.23-9.07)
[2025-04-18 15:32] LABS: Calcium 9.5 mg/dL (8.4-10.2); Carbon Dioxide 34.0 mmol/L (22-30); Creatinine 1 0.89 mg/dL (0.66-1.25); EST GLOMERULAR FILTRATION RATE 90.5 ML/MIN; Glucose 116.0 mg/dL (74-106); Potassium 4.4 mmol/L (3.5-5.1); SGOT/AST 39.0 U/L (17-59); SGPT/ALT 22.0 U/L (0-50); Total Protein 8.3 g/dL (6.3-8.2)
[2025-04-18 15:39] LABS: INR 0.93 (0.8-3.0); PROTIME 10.2 SECONDS (9.4-12.5); PTT 22.5 SECONDS (25.1-36.5)
[2025-04-18 15:43] LABS: NT PRO BNPII 410 pg/mL (<300); TROPONIN < 0.012 ng/mL (0.000-0.033)
[2025-04-18 16:44] LABS: INFLUENZA A NEGATIVE (NEGATIVE); INFLUENZA B NEGATIVE (NEGATIVE); RESPIRATORY SYNCTIAL VIRUS NEGATIVE (NEGATIVE); SARS-CoV-2 Xpert Express NEGATIVE (NEGATIVE)
--- NOTE | 2025-04-18 19:01 | XRAY ---
CLINICAL HISTORY: sob and elevated dimer r/o PE COMPARISON: None. TECHNIQUE: Contiguous 3.[address] images of the chest were acquired with administration of intravenous contrast. Coronal and sagittal reconstructions were obtained. 80cc Isovue 370 was administered for post-contrast images. One of the following dose reduction techniques was utilized for this exam: automated exposure control, adjustment of the mA and/or kV according to patient size, and use of iterative reconstruction. FINDINGS: Lungs: Both lung abbott are hyperinflated, showing diffuse centrilobular emphysematous changes in the form of dilatation of peripheral subpleural and parenchymal air spaces with attenuated pulmonary vessels. There is a left lower lung lobe pleural-based calcified nodule measuring 13 x 15.5 mm, likely a granuloma. There are a few scattered right pulmonary subcentimetric nodules. Bilateral pulmonary atelectatic bands and subpleural reticulations are present. There is no evidence of consolidation, collapse, or focal lesions. No ground-glass opacities or interstitial changes. No pleural effusion or pleural thickening. Mediastinum: There is no mediastinal mass or abnormal lymphadenopathy. The thymus shows normal appearance. Hilar Structures: Normal size and configuration, with no enlargement. Heart and Great Vessels: Normal heart size and configuration are seen. No pericardial effusion. Atherosclerotic changes are present in the thoracic aorta. No aneurysm. Normal enhancement of the great vessels is noted post-contrast. Pulmonary Arteries: There is no evidence of pulmonary embolism. Pulmonary arteries are normal in size and course. Esophagus: Normal course and caliber. No masses or dilatation are seen. Bones: There is anterior wedging of the T7 vertebral body, showing reduced vertical height. Osteopenia is present. No fractures or lytic/sclerotic lesions. No evidence of rib fractures. Chest Wall: No masses or soft tissue abnormalities are identified. Upper Abdomen: A left renal cortical cyst measures 3.5 x 4 cm. Atherosclerotic changes of the visualized abdominal aorta with calcific plaques and intramural thrombus are noted. There is a splenic parenchymal calcific focus, likely post-granulomatous infection sequela. No abnormalities are noted in the other visualized upper abdominal organs. Thyroid: Normal size and morphology. No nodules or masses. IMPRESSION: 1. No evidence of thromboembolism or filling defects in the pulmonary trunk and its major branches. 2. Both lung abbott are hyperinflated, showing diffuse centrilobular emphysematous changes, suggestive of emphysematous lung changes with chronic obstructive airway disease (COPD). Clinical correlation is advised. 3. There is a left lower lung lobe pleural-based calcified nodule measuring 13 x 15.5 mm, likely a granuloma. 4. Atherosclerotic changes of the thoracic and visualized abdominal aorta with calcific plaques are present. CT aortography is advised. Electronically Signed by: Devon Bradshaw MD. (04/18/2025 18:59:50 EDT)
--- NOTE | 2025-04-18 20:25 | XRAY ---
Indication: Short of breath. Comparison: March 18, 2025 Portable chest unchanged again demonstrating COPD and left lung calcified granuloma. Heart not enlarged again with tortuous descending aorta. Bony thorax intact again with osteopenia and degenerative changes. No new/acute findings.
[2025-04-18] MEDS ORDERED: Sterile H2O 10 ml IJ ONE (21:36)
[2025-04-18] MEDS: solu-MEDROL 125 MG, Sterile H2O 10 ml 2 ML IV ONE (21:38)
[2025-04-18] MEDS ORDERED: ROCEPHIN 1 GM / 100 ML NaCl 1 GM/100 ML IVPB IV ONE (21:57)
[2025-04-18] MEDS: ROCEPHIN 1 GM / 100 ML NaCl 1 GM/100 ML IVPB IV ONE (21:59)
[2025-04-18 22:21] LABS: Glucose, Urine Negative (Negative); Protein,Urine Dip Negative (Negative); RBC 0-2 /HPF (0-5); WBC 0-2 /HPF (0-5)
[2025-04-18 23:34] VITALS: RESP 18
[2025-04-19 02:37] VITALS: BP 140/86; PULSE 81; O2SAT 96
== END 2025-04-19 02:43 | disposition home or self-care (01) ==
LOC: ED 14:40
DX: J44.1 Chronic obstructive pulmonary disease with (acute) exacerbation (principal); R06.02 Shortness of breath; R63.4 Abnormal weight loss; R53.1 Weakness; I10 Essential (primary) hypertension; Z79.02 Long term (current) use of antithrombotics/antiplatelets; Z79.52 Long term (current) use of systemic steroids; Z79.899 Other long term (current) drug therapy